=== PATIENT | female | born 1970 | race Caucasian/White ===

== ENCOUNTER 2017-03-02 14:47 | Emergency (ER) | payer BC ==
[2017-03-02 14:52] VITALS: BP 127/92; PULSE 103; TEMP 98.7; BMI 21.7
--- NOTE | 2017-03-02 15:42 | PDOC ---
"History of Present Illness - General Chief Complaint: Pain Stated Complaint: LT FOOT PAIN/wart Time Seen by Provider: 03/02/17 15:33 History Source: Patient Exam Limitations: No Limitations - History of Present Illness Initial Comments: 03/02/17 15:38 CHIEF COMPLAINT: Pain to left heel HISTORY OF PRESENT ILLNESS: Patient is a 46-year-old female with history of anemia, hypertension, reflux and anxiety. Presents [facility] department with left heel pain. Patient is under the care of podiatry for what he diagnosed was a plantar wart to the left heel. Was supposed to go on Friday however missed her appointment has calloused painful lesion to left heel. No erythema, edema, no streaking. Denies any trauma. Severity: Yes: moderate Lower Extremity Pain Location: left: heel Extremity Pain Location - Extremity Pain Location Extremity Pain Locations: left: heel Past History - Past Medical History Allergies/Adverse Reactions: Allergies Allergy/AdvReac Type Severity Reaction Status Date / Time No Known Allergies Allergy Verified 03/02/17 14:51 Home Medications: Ambulatory Orders Losartan/Hydrochlorothiazide [Hyzaar 100-25 Tablet] 1 each PO DAILY 07/05/13 Pantoprazole Sodium [Protonix] 40 mg PO DAILY #30 tablet. 11/04/14 Cholecalciferol (Vitamin D3) [Vitamin D3] 2,000 unit PO DAILY 12/04/15 Diazepam [Valium] 5 mg PO PRN PRN 12/04/15 Folic Acid 1 mg PO DAILY 12/04/15 Magnesium Oxide 400 mg PO DAILY 12/04/15 Potassium Chloride [Klor-Con M10] 20 meq PO DAILY 12/04/15 Naproxen [Naprosyn -] 500 mg PO BID #14 tablet 03/02/17 Oxycodone HCl/Acetaminophen [Percocet 5-325 mg Tablet] 1 tab PO Q4H #12 tablet MDD 6 03/02/17 Anemia: Yes Asthma: No Cancer: No Cardiac Disorders: No CVA: No COPD: No CHF: No Dementia: No Diabetes: No GI Disorders: Yes (Reflux) Disorders: No HTN: Yes Hypercholesterolemia: No Liver Disease: No Psychiatric Problems: Yes (ANXIETY.) Seizures: No Thyroid Disease: No - Surgical History Abdominal Surgery: No Appendectomy: No Cardiac Surgery: No Cholecystectomy: No Lung Surgery: No Neurologic Surgery: No Orthopedic Surgery: No - Reproductive History Tubal Ligation: Yes Uterine Fibroids: Yes - Suicide/Smoking/Psychosocial Hx Smoking History: Current every day smoker Have you smoked in the past 12 months: Yes Number of Cigarettes Smoked Daily: 10 Information on smoking cessation initiated: Yes 'Breaking Loose' booklet given: 03/02/17 Hx Alcohol Use: No Drug/Substance Use Hx: No Substance Use Type: None Hx Substance Use Treatment: No Review of Systems - Review of Systems Constitutional: No: Symptoms Reported HEENTM: No: Symptoms Reported Respiratory: No: Symptoms reported Cardiac (ROS): No: Symptoms Reported ABD/GI: No: Symptoms Reported : No: Symptoms Reported Musculoskeletal: Yes: Other (painful lesion to plantar surface of left heel) Integumentary: Yes: Other (callused lesion to left heel). No: Bruising, Erythema Neurological: No: Symptoms reported All Other Systems: Reviewed and Negative *Physical Exam - Vital Signs Last Vital Signs Temp Pulse Resp BP Pulse Ox 98.7 F 103 H 18 127/92 97 03/02/17 14:49 03/02/17 14:49 03/02/17 14:49 03/02/17 14:49 03/02/17 14:49 - Physical Exam General Appearance: Yes: Appropriately Dressed. No: Apparent Distress Neck: negative: Tender lateral, Tender midline Respiratory/Chest: positive: Lungs Clear, Normal Breath Sounds. negative: Respiratory Distress, Accessory Muscle Use Cardiovascular: positive: Regular Rhythm, Regular Rate Lymphatic: negative: Adenopathy Musculoskeletal: positive: Normal Inspection. negative: Decreased Range of Motion, Muscle Spasm, Vertebral Tenderness Extremity: positive: Normal Capillary Refill, Normal Inspection, Normal Range of Motion, Tender (left heel ). negative: Pedal Edema, Swelling, Erythema, Inflammation Integumentary: positive: Normal Color, Dry, Other (calloused lesion to the plantar surface of the left heel. ). negative: Erythema, Swelling, Ecchymosis , Bruising Neurologic: positive: Alert, Normal Mood/Affect ED Treatment Course - RADIOLOGY Radiology Studies Ordered: Category Date Time Status FOOT-LEFT [RAD] Stat Radiology 03/02/17 15:36 Ordered Medical Decision Making - Medical Decision Making 03/02/17 15:45 A/P: Patient here for evaluation of left heel pain, diagnosed with plantar warts , there is a significant callus lesion to the heel of the left foot. There is no erythema edema or evidence of cellulitis. This was seen by podiatry states that x-ray was not performed to rule out foreign body, will perform x-ray here as the callus lesion does not have typical for-wart like appearance. 03/02/17 16:33 Toradol 60 mg IM x 1 given. Xray negative for foreign body. Patient verbalized upset because day care center director was not on staff to see her in emergency department. Explained to patient that she has no clinical evidence of infection, no redness, swelling or streaking. We will discharge patient home on antiinflammatories, pain medication, strict follow up tomorrow with podiatry. Nimesh wrap placed on sparing the site of pain, to decrease pressure to area. I discussed the physical exam findings, ancillary test results and final diagnoses with the patient. I answered all of the patient's questions. The patient was satisfied with the care received and felt comfortable with the discharge plan and treatment plan. The patient will call tomorrow to arrange follow-up and will return to the Emergency Department with any new, persistent or worsening symptoms. [facility] prescription plan reviewed: The Drug Utilization Report below displays all of the controlled substance prescriptions, if any, that your patient has filled in the last twelve months. The information displayed on this report is compiled from pharmacy submissions to the Department, and accurately reflects the information as submitted by the pharmacies. This report was requested by: Haley Hoskins | Reference #: [id number] There are no results for the search terms that you entered. *DC/Admit/Observation/Transfer Diagnosis at time of Disposition: Pain of left heel - Discharge Dispostion Disposition: HOME Condition at time of disposition: Good Admit: No - Prescriptions Prescriptions: Naproxen [Naprosyn -] 500 mg PO BID #14 tablet Oxycodone HCl/Acetaminophen [Percocet 5-325 mg Tablet] 1 tab PO Q4H #12 tablet MDD 6 - Referrals Referrals: Jono Benitez MD [Staff Physician] - - Patient Instructions Printed Discharge Instructions: Heels That Hurt Additional Instructions: Ice to heal Anti-inflammatories as needed Please call tomorrow to be evaluated by podiatry ice and elevate while at rest - Post Discharge Activity Forms/Work/School Notes: Back to Work"
[2017-03-02] MEDS ORDERED: KETOROLAC TROMETHAMINE 60 MG/2 ML VIAL IM ONE (16:06)
[2017-03-02] MEDS ORDERED: KETOROLAC TROMETHAMINE 60 MG/2 ML VIAL ONE (16:06)
== END 2017-03-02 16:45 | disposition home or self-care (01) ==
LOC: JERFT 14:47
PROC: 3E0233Z Introduction of Anti-inflammatory into Muscle, Percutaneous Approach (ICD-10-PCS; principal; 2017-03-02)
DX: L84 Corns and callosities (principal); I10 Essential (primary) hypertension; K21.9 Gastro-esophageal reflux disease without esophagitis; F41.9 Anxiety disorder, unspecified; D64.9 Anemia, unspecified
CPT/HCPCS: 73630-TC-LT; 99281-25

== ENCOUNTER 2017-03-19 12:35 | Emergency (ER) | payer OTHER, BC ==
[2017-03-19 12:44] VITALS: BP 145/70; PULSE 92; TEMP 98; BMI 20.9
[2017-03-19] MEDS ORDERED: ACETAMINOPHEN 500 MG TABLET (FP) PO ONE (13:12)
[2017-03-19] MEDS ORDERED: ACETAMINOPHEN 500 MG TABLET (FP) ONE (13:13)
--- NOTE | 2017-03-19 13:53 | PDOC ---
History of Present Illness - General Chief Complaint: Head/Neck problem Stated Complaint: BACK OF HEAD/NECK PAIN Time Seen by Provider: 03/19/17 13:02 History Source: Patient Exam Limitations: No Limitations - History of Present Illness Initial Comments: 03/19/17 13:37 CHIEF COMPLAINT: Was hit in the back of the head yesterday by a basketball at work.Now with headache, pain, dizziness. HISTORY OF PRESENT ILLNESS: Patient is a 46 year old female, history of hypertension and anxiety also with chronic foot discomfort states yesterday while at work she was hit in the back of the head with a mask fall. Patient states she was standing next to a fence and felt as if she "blacked out" held herself up. Today with headache, dizziness, no visual disturbance, no nausea vomiting, no neurosensory deficits. MEDS: See medication list ALLERGIES: None REVIEW OF SYSTEMS: GENERAL/CONSTITUTIONAL: Awake alert and oriented HEAD, EYES, EARS, NOSE AND THROAT: No change in vision. No facial edema, no bruising. NO active bleeding. Nares intact. RESPIRATORY: No cough, wheezing, or hemoptysis. CARDIAC: Denies chest pain, no shortness of breathe. MUSCULOSKELETAL: No spinal point tenderness, Good ROM to all four extremeties. NO CVA tenderness. No lateral neck pain. GI/: Denies abdominal pain, no nausea or vomiting, no bloody stool, no Hematuria. SKIN : No erythema or bruising noted. No abrasion or lacerations. NEUROLOGIC: Questionable loss of consciousness, headache, dizziness PHYSICAL EXAM: GENERAL: Awake and alert and oriented x3. EYES: The pupils are equal, round, and reactive to light, with clear, conjunctiva. Good extraocular movement. No nystagmus NOSE: No nasal trauma . Midface stable MOUTH: Teeth intact. EARS: The ear canals and tympanic membranes are normal without trauma. No drainage. NECK: No Lower cervical C-spine tenderness, no pain with chin to chest. CHEST: The lungs are clear without crackles, or wheezes. No subcutaneous emphysema. No crepitus. HEART: Heart is regular rhythm, with normal S1 and S2, no murmurs. ABDOMEN: The abdomen is soft and nontender with normal bowel sounds. There is no guarding or rebound. MUSCULOSKELETAL: No spinal point tenderness. No bruising or erythema. Pelvis stable. EXTREMITIES: Extremities are normal. No visible traumatic injury. NEUROLOGICAL:Mental status: The patient is oriented x3. No Generalized headache , Romberg - Cranial nerves: Cranial nerves II through XII are intact Motor: The upper extremities are 5 over 5 in all muscle groups. The lower extremities are 5 over 5 in all muscle groups. Sensation: Sensation is intact to light touch throughout. Cerebellar: Kbntwr-xckokf-edib is normal in both upper extremities. Heel-knee- medeiros is normal in both lower extremities. Reflexes: 2+ and symmetric in the upper and lower extremities. Gait: Normal. Heel and toe walking are normal. Tandem gait is normal. SKIN: Without edema, erythema or bruising. No abrasions or lacerations. Past History - Past Medical History Allergies/Adverse Reactions: Allergies Allergy/AdvReac Type Severity Reaction Status Date / Time No Known Allergies Allergy Verified 03/19/17 12:44 Home Medications: Ambulatory Orders Losartan/Hydrochlorothiazide [Hyzaar 100-25 Tablet] 1 each PO DAILY 07/05/13 Pantoprazole Sodium [Protonix] 40 mg PO DAILY #30 tablet. 11/04/14 Cholecalciferol (Vitamin D3) [Vitamin D3] 2,000 unit PO DAILY 12/04/15 Diazepam [Valium] 5 mg PO PRN PRN 12/04/15 Folic Acid 1 mg PO DAILY 12/04/15 Magnesium Oxide 400 mg PO DAILY 12/04/15 Potassium Chloride [Klor-Con M10] 20 meq PO DAILY 12/04/15 Naproxen [Naprosyn -] 500 mg PO BID #14 tablet 03/02/17 Oxycodone HCl/Acetaminophen [Percocet 5-325 mg Tablet] 1 tab PO Q4H #12 tablet MDD 6 03/02/17 Anemia: Yes Asthma: No Cancer: No Cardiac Disorders: No CVA: No COPD: No CHF: No Dementia: No Diabetes: No GI Disorders: Yes (Reflux) Disorders: No HTN: Yes Hypercholesterolemia: No Liver Disease: No Psychiatric Problems: Yes (ANXIETY.) Seizures: No Thyroid Disease: No - Surgical History Abdominal Surgery: No Appendectomy: No Cardiac Surgery: No Cholecystectomy: No Lung Surgery: No Neurologic Surgery: No Orthopedic Surgery: No - Reproductive History Tubal Ligation: Yes Uterine Fibroids: Yes - Suicide/Smoking/Psychosocial Hx Smoking History: Current every day smoker Have you smoked in the past 12 months: Yes Number of Cigarettes Smoked Daily: 10 Information on smoking cessation initiated: No 'Breaking Loose' booklet given: 12/04/15 Hx Alcohol Use: Yes (Occasionally) Drug/Substance Use Hx: No Substance Use Type: None Hx Substance Use Treatment: No *Physical Exam - Vital Signs Last Vital Signs Temp Pulse Resp BP Pulse Ox 98 F 92 H 16 145/70 100 03/19/17 12:41 03/19/17 12:41 03/19/17 12:41 03/19/17 12:41 03/19/17 12:41 ED Treatment Course - RADIOLOGY Radiology Studies Ordered: Category Date Time Status HEAD CT WITHOUT CONTRAST [CT] Stat CT Scan 03/19/17 13:13 Taken - Medications Given in the ED: ED Medications Discontinued Medications Generic Name Dose Route Start Last Admin Trade Name Lam PRN Reason Stop Dose Admin Acetaminophen 1,000 mg 03/19/17 13:12 03/19/17 13:16 Tylenol - PO 03/19/17 13:13 1,000 mg ONCE ONE Administration Medical Decision Making - Medical Decision Making 03/19/17 14:00 A/P: Patient here for evaluation of posttraumatic headache, questionable LOC with headache which has not responded to ibuprofen. Because of nature of injury and because she works at [employer] system will perform head CT. Tylenol [address] scan with no acute pathology, patient states some relief after Tylenol to follow-up with neurology I discussed the physical exam findings, ancillary test results and final diagnoses with the patient. I answered all of the patient's questions. The patient was satisfied with the care received and felt comfortable with the discharge plan and treatment plan. The patient will call to arrange follow-up and will return to the Emergency Department with any new, persistent or worsening symptoms. *DC/Admit/Observation/Transfer Diagnosis at time of Disposition: Post-concussion headache - Discharge Dispostion Disposition: HOME Condition at time of disposition: Good Admit: No - Referrals Referrals: Phillip Giang [Primary Care Provider] - Ethan Perkins MD [Staff Physician] - - Patient Instructions Printed Discharge Instructions: Postconcussion Syndrome Additional Instructions: Please follow up with neurology for evaluation Please take tylenol for pain - Post Discharge Activity Forms/Work/School Notes: Back to Work
== END 2017-03-19 14:51 | disposition home or self-care (01) ==
LOC: JERFT 12:35
DX: G44.89 Other headache syndrome (principal); W21.05XA Struck by basketball, initial encounter; Y93.89 Activity, other specified; Y92.9 Unspecified place or not applicable; F41.9 Anxiety disorder, unspecified; I10 Essential (primary) hypertension; K21.9 Gastro-esophageal reflux disease without esophagitis; F17.210 Nicotine dependence, cigarettes, uncomplicated
CPT/HCPCS: 70450-TC; 99281-25

== ENCOUNTER 2017-05-19 01:03 | Emergency (ER) | payer BC, OTHER ==
[2017-05-19 01:56] VITALS: BP 121/79; PULSE 98; TEMP 98.3; BMI 22.6
[2017-05-19] MEDS ORDERED: KETOROLAC TROMETHAMINE 15 MG/ML VIAL IM ONE (02:39)
[2017-05-19] MEDS ORDERED: GABAPENTIN 300 MG CAPSULE (FP) PO ONE (02:39)
[2017-05-19] MEDS ORDERED: KETOROLAC TROMETHAMINE 30 MG/1 ML VIAL IM ONE (02:41)
[2017-05-19] MEDS ORDERED: KETOROLAC TROMETHAMINE 30 MG/1 ML VIAL ONE (02:44)
[2017-05-19] MEDS ORDERED: GABAPENTIN 100 MG CAPSULE (FP) ONE (02:44)
--- NOTE | 2017-05-19 02:49 | PDOC ---
History of Present Illness - General Chief Complaint: Pain Stated Complaint: GENERALIZED PAIN Time Seen by Provider: 05/19/17 02:01 History Source: Patient Exam Limitations: No Limitations - History of Present Illness Initial Comments: 05/19/17 02:42 Patient is a 46-year-old female with past medical history of anemia, hypertension, reflux, anxiety states she has been have sharp, pin like, shocking pain in arms and legs since having a concussion on 03/18/17. States she is under the treatment of Dr. Durand (neuro), and has been given gabapentin but she has no relief of symptoms. States she has been taking Motrin 400 mg every 3-4 hours without relief. Tonight her pain is 10/10, she is having difficulty walking and sleeping due to the pain so presents to the emergency room for evaluation. States she should've had a nerve testing done last week however it was canceled for unknown reasons. Denies any numbness/tingling. PMD: Dr. Giang Neuro: [place] GENERAL/CONSTITUTIONAL: [No fever or chills. No weakness. No weight change.] HEAD, EYES, EARS, NOSE AND THROAT: [No change in vision. No ear pain or discharge. No sore throat.] CARDIOVASCULAR: [No chest pain or shortness of breath.] RESPIRATORY: [No cough, wheezing, or hemoptysis.] GASTROINTESTINAL: [No nausea, vomiting, diarrhea or constipation. No rectal bleeding.] GENITOURINARY: [No dysuria, frequency, or change in urination.] MUSCULOSKELETAL: [No joint or muscle swelling or pain. No neck or back pain.] SKIN AND BREASTS: [No rash or easy bruising.] NEUROLOGIC:(+) nerve pain (-) headache, vertigo, loss of consciousness, or loss of sensation.] PSYCHIATRIC: [No depression or anxiety.] ENDOCRINE: [No increased thirst. No abnormal weight change.] HEMATOLOGIC/LYMPHATIC: [No anemia, easy bleeding, or history of blood clots.] ALLERGIC/IMMUNOLOGIC: [No hives or skin allergy. No latex allergy.] GENERAL: [The patient is awake, alert, and fully oriented, in moderate painful distress, jump each time the has pain.] HEAD: [Normal with no signs of trauma.] EYES: [Pupils equal, round and reactive to light, extraocular movements intact, sclera anicteric, conjunctiva clear.] ENT: [Ears normal, nares patent, oropharynx clear without exudates. Moist mucous membranes.] NECK: [Normal range of motion, supple without lymphadenopathy, JVD, or masses.] LUNGS: [Breath sounds equal, clear to auscultation bilaterally. No wheezes, and no crackles.] HEART: [Regular rate and rhythm, normal S1 and S2 without murmur, rub.] ABDOMEN: [Soft, nontender, normoactive bowel sounds. No guarding, no rebound. No masses.] EXTREMITIES: [Normal range of motion, no edema. No clubbing or cyanosis. No cords, erythema, or tenderness.] NEUROLOGICAL: [Cranial nerves II through XII grossly intact. Normal speech, normal gait.] PSYCH: [Normal mood, normal affect.] SKIN: [Warm, Dry, normal turgor, no rashes or lesions noted.] 05/19/17 02:51 Past History - Past Medical History Allergies/Adverse Reactions: Allergies Allergy/AdvReac Type Severity Reaction Status Date / Time No Known Allergies Allergy Verified 05/19/17 01:30 Home Medications: Ambulatory Orders Losartan/Hydrochlorothiazide [Hyzaar 100-25 Tablet] 1 each PO DAILY 07/05/13 Pantoprazole Sodium [Protonix] 40 mg PO DAILY #30 tablet. 11/04/14 Cholecalciferol (Vitamin D3) [Vitamin D3] 2,000 unit PO DAILY 12/04/15 Diazepam [Valium] 5 mg PO PRN PRN 12/04/15 Folic Acid 1 mg PO DAILY 12/04/15 Magnesium Oxide 400 mg PO DAILY 12/04/15 Potassium Chloride [Klor-Con M10] 20 meq PO DAILY 12/04/15 Naproxen [Naprosyn -] 500 mg PO BID #14 tablet 03/02/17 Oxycodone HCl/Acetaminophen [Percocet 5-325 mg Tablet] 1 tab PO Q4H #12 tablet MDD 6 03/02/17 Oxycodone HCl/Acetaminophen [Percocet 5/325 -] 1 tab PO Q4H #12 tablet MDD 6 04/25 Anemia: Yes Asthma: No Cancer: No Cardiac Disorders: No CVA: No COPD: No CHF: No Dementia: No Diabetes: No GI Disorders: Yes (Reflux) Disorders: No HTN: Yes Hypercholesterolemia: No Liver Disease: No Psychiatric Problems: Yes (ANXIETY.) Seizures: No Thyroid Disease: No - Surgical History Abdominal Surgery: No Appendectomy: No Cardiac Surgery: No Cholecystectomy: No Lung Surgery: No Neurologic Surgery: No Orthopedic Surgery: No - Reproductive History Tubal Ligation: Yes Uterine Fibroids: Yes - Suicide/Smoking/Psychosocial Hx Smoking History: Current every day smoker Have you smoked in the past 12 months: Yes Number of Cigarettes Smoked Daily: 10 Information on smoking cessation initiated: No 'Breaking Loose' booklet given: 12/04/15 Hx Alcohol Use: No Drug/Substance Use Hx: No Substance Use Type: None Hx Substance Use Treatment: No *Physical Exam - Vital Signs Last Vital Signs Temp Pulse Resp BP Pulse Ox 98.3 F 98 H 20 121/79 98 05/19/17 01:30 05/19/17 01:30 05/19/17 01:30 05/19/17 01:30 05/19/17 01:30 Medical Decision Making - Medical Decision Making 05/19/17 02:51 Patient is a 46-year-old female with past medical history of anemia, hypertension, reflux, anxiety states she has been have sharp, pin like, shocking pain in arms and legs since having a concussion on 03/18/17 consistent peripheral neuropathy. Will give Percocet on gabapentin 300 mg by mouth, Toradol 30 mg IM. Reassess on discharge. Patient is improved I discussed the physical exam findings, ancillary test results and final diagnoses with the patient. I answered all of the patient's questions. The patient was satisfied with the care received and felt comfortable with the discharge plan and treatment plan. The Patient agrees to follow up with the primary care physician within 24-72 hours. *DC/Admit/Observation/Transfer Diagnosis at time of Disposition: Peripheral neuropathy Qualifiers: Peripheral neuropathy type: polyneuropathy, unspecified Qualified Code(s): G62.9 - Polyneuropathy, unspecified - Discharge Dispostion Disposition: HOME Condition at time of disposition: Stable - Prescriptions Prescriptions: Oxycodone HCl/Acetaminophen [Percocet 5/325 -] 1 tab PO Q4H #12 tablet MDD 6 - Referrals Referrals: Phillip Giang [Primary Care Provider] - - Patient Instructions Printed Discharge Instructions: Peripheral Neuropathy Additional Instructions: Your Discharge Instructions: You must call primary care physician within 24 hours to arrange follow-up. Return to the Emergency Department with any new, persistent or worsening symptoms, for fever, chills, SOB, dizziness or any other concerning changes that may occur. He was follow-up with neurology for possible pain management. - Post Discharge Activity
== END 2017-05-19 05:16 | disposition home or self-care (01) ==
LOC: JER 01:03
PROC: 3E0233Z Introduction of Anti-inflammatory into Muscle, Percutaneous Approach (ICD-10-PCS; principal; 2017-05-19)
DX: G62.9 Polyneuropathy, unspecified (principal); D64.9 Anemia, unspecified; I10 Essential (primary) hypertension; K21.9 Gastro-esophageal reflux disease without esophagitis; F41.9 Anxiety disorder, unspecified
CPT/HCPCS: 99281-25

== ENCOUNTER 2021-04-03 12:57 | Emergency (ER) | payer BC ==
[2021-04-03 13:09] VITALS: BP 167/96; PULSE 74; TEMP 98.6; BMI 18.3
[2021-04-03] MEDS ORDERED: POLYETHYLENE GLYCOL 3350 119 GM BTL PO ONE (13:30)
[2021-04-03] MEDS ORDERED: LACTULOSE 20 GM/30 ML UDC (FOR ORAL USE ONLY) PO ONE (13:30)
[2021-04-03] MEDS ORDERED: LACTULOSE 20 GM/30 ML UDC (FOR ORAL USE ONLY) ONE (13:38)
[2021-04-03] MEDS ORDERED: POLYETHYLENE GLYCOL (HEALTHYLAX) 3350 17 GM PACKET ONE (13:40)
[2021-04-03] MEDS ORDERED: MAG HYDROX/AL HYDROX/SIMETH 30 ML UNIT-DOSE CUP PO ONE (14:31)
[2021-04-03] MEDS ORDERED: MAG HYDROX/AL HYDROX/SIMETH 30 ML UNIT-DOSE CUP ONE (14:41)
[2021-04-03] MEDS ORDERED: SODIUM PHOSPHATE/NA BIPHOS 133 ML ENEMA PR ONE (14:58)
[2021-04-03 15:39] LABS: PH,URINE 8.5 (5.0-8.0); URINE APPEARANCE CLEAR; URINE BILIRUBIN NEGATIVE (NEGATIVE); URINE COLOR YELLOW; URINE GLUCOSE (UA) NEGATIVE (NEGATIVE); URINE KETONE NEGATIVE (NEGATIVE); URINE LEUK ESTERASE NEGATIVE (NEGATIVE); URINE NITRITE NEGATIVE (NEGATIVE); URINE PROTEIN NEGATIVE (NEGATIVE); URINE UROBILINOGEN 0.2 mg/dL (0.2-1.0)
[2021-04-03] MEDS ORDERED: KETOROLAC TROMETHAMINE 30 MG/1 ML VIAL IM ONE (15:40)
[2021-04-03] MEDS ORDERED: KETOROLAC TROMETHAMINE 30 MG/1 ML VIAL ONE (15:41)
== END 2021-04-03 16:55 | disposition home or self-care (01) ==
LOC: JER 12:57
PROC: 3E0233Z Introduction of Anti-inflammatory into Muscle, Percutaneous Approach (ICD-10-PCS; principal; 2021-04-03)
DX: K59.00 Constipation, unspecified (principal)
CPT/HCPCS: 74019-TC-FY; 81003; 87086; 99284-25

== ENCOUNTER 2021-12-01 10:36 | Inpatient (IN) | payer BC ==
[2021-12-01] MEDS ORDERED: SODIUM CHLORIDE 1,000 ML IV STA ×2 (11:30→13:17)
[2021-12-01] MEDS ORDERED: MAG HYDROX/AL HYDROX/SIMETH 30 ML UNIT-DOSE CUP PO ONE (11:49)
[2021-12-01] MEDS ORDERED: POLYETHYLENE GLYCOL 3350 119 GM BTL PO ONE (11:49)
[2021-12-01] MEDS ORDERED: LACTULOSE 20 GM/30 ML UDC (FOR ORAL USE ONLY) PO ONE (11:49)
[2021-12-01] MEDS ORDERED: MAG HYDROX/AL HYDROX/SIMETH 30 ML UNIT-DOSE CUP ONE (11:51)
[2021-12-01] MEDS ORDERED: POLYETHYLENE GLYCOL (HEALTHYLAX) 3350 17 GM PACKET ONE (12:01)
[2021-12-01] MEDS ORDERED: LACTULOSE 20 GM/30 ML UDC (FOR ORAL USE ONLY) ONE (12:02)
[2021-12-01 12:13] LABS: BASO % 0.2 % (0-2.0); HEMATOCRIT 39.8 % (32.4-45.2); HEMOGLOBIN 13.4 GM/dL (10.7-15.3); LYMPH % 6.1 % (8-40); MCHC 33.5 g/dl (32.0-36.0); MEAN CELL VOLUME 101.4 fl (80-96); MEAN PLT VOLUME 9.8 fl (7.5-11.1); MONO % 7.1 % (3.8-10.2); NEUT % 86.6 % (42.8-82.8); PLATELET COUNT 135 10^3/uL (134-434); RBC 3.93 M/mm3 (3.60-5.2); RDW 16.2 % (11.6-15.6)
[2021-12-01 12:26] LABS: CHLORIDE 97 mmol/L (98-107); SODIUM 135 mmol/L (136-145)
[2021-12-01 12:28] LABS: CALCIUM 9.5 mg/dL (8.5-10.1)
[2021-12-01 12:29] LABS: ALBUMIN 4.3 g/dl (3.4-5.0); ANION GAP 8 MMOL/L (8-16); BLOOD UREA NITROGEN 24.4 mg/dL (7-18); CO2 31 mmol/L (21-32); GLUCOSE,RANDOM 155 mg/dL (74-106)
[2021-12-01 12:31] LABS: SGPT/ALT 48 U/L (13-61)
[2021-12-01 12:32] LABS: CREATININE 0.9 mg/dL (0.55-1.3); SGOT/AST 111 U/L (15-37)
[2021-12-01] MEDS ORDERED: SODIUM PHOSPHATE/NA BIPHOS 133 ML ENEMA PR ONE (12:32)
[2021-12-01 12:34] LABS: ALK PHOS 113 U/L (45-117); BILIRUBIN,TOTAL 0.8 mg/dL (0.2-1); TOT PROT 8.2 g/dl (6.4-8.2)
[2021-12-01] MEDS ORDERED: ACETAMINOPHEN 1000 MG/100 ML BAG IVPB ONE (13:29)
[2021-12-01 14:09] LABS: EPI CELLS 24 /uL (0-25.1); HCG,QUALITATIVE URINE Negative; HYALINE CASTS 2 /uL (0-3.1); PH,URINE 6.5 (5.0-8.0); URINE APPEARANCE CLEAR; URINE BACTERIA 44 /uL (0-1359); URINE BILIRUBIN NEGATIVE (NEGATIVE); URINE COLOR YELLOW; URINE GLUCOSE (UA) NEGATIVE (NEGATIVE); URINE KETONE TRACE (NEGATIVE); URINE LEUK ESTERASE NEGATIVE (NEGATIVE); URINE NITRITE NEGATIVE (NEGATIVE); URINE PROTEIN 2+ (NEGATIVE); URINE RBC 9 /uL (0-23.9); URINE UROBILINOGEN 0.2 mg/dL (0.2-1.0); URINE WBC 4 /uL (0-25.8)
[2021-12-01] MEDS ORDERED: ACETAMINOPHEN INJECTION 100 ML IVPB ONE (14:34)
[2021-12-01] MEDS ORDERED: SODIUM CHLORIDE 1,000 ML IV SCH (16:30)
[2021-12-01] MEDS ORDERED: NICOTINE 21 MG/24 HOURS TOPICAL PATCH ONE (21:47)
[2021-12-01] MEDS: NICOTINE 21 MG/24 HOURS TOPICAL PATCH TD SCH (23:18)
[2021-12-01] MEDS: LORazepam 2 MG/ML SDV VIAL IVPUSH PRN (23:18)
[2021-12-02] MEDS: LORazepam 2 MG/ML SDV VIAL IVPUSH PRN ×4 (05:19→23:40)
[2021-12-02 07:38] LABS: BASO % 0.2 % (0-2.0); EOS % 0.2 % (0-4.5); HEMOGLOBIN 12.2 GM/dL (10.7-15.3); LYMPH % 8.6 % (8-40); MCH 34.6 pg (25.7-33.7); MCHC 33.8 g/dl (32.0-36.0); MEAN CELL VOLUME 102.3 fl (80-96); MONO % 6.7 % (3.8-10.2); NEUT % 84.3 % (42.8-82.8); PLATELET COUNT 94 10^3/uL (134-434); RBC 3.52 M/mm3 (3.60-5.2); RDW 16.3 % (11.6-15.6)
[2021-12-02] MEDS ORDERED: LACTATED RINGERS SOLUTION 1,000 ML/1,000 ML INFUS.BAG IV SCH (08:00)
[2021-12-02 08:02] LABS: CALCIUM 8.5 mg/dL (8.5-10.1)
[2021-12-02 08:03] LABS: ALBUMIN 3.8 g/dl (3.4-5.0); CREATININE 0.5 mg/dL (0.55-1.3)
[2021-12-02 08:05] LABS: TOT PROT 7.3 g/dl (6.4-8.2)
[2021-12-02 08:07] LABS: BLOOD UREA NITROGEN 11.9 mg/dL (7-18)
[2021-12-02 08:12] LABS: BILIRUBIN,TOTAL 0.9 mg/dL (0.2-1)
[2021-12-02] MEDS ORDERED: KCL 10 MEQ IVPB 10 MEQ/100 ML INFUS.BAG IVPB SCH (08:15)
[2021-12-02] MEDS ORDERED: THIAMINE HCL 200 MG/2 ML VIAL IVPB ONE ×2 (08:38)
[2021-12-02 08:44] LABS: MAGNESIUM 1.2 mg/dL (1.8-2.4)
[2021-12-02] MEDS ORDERED: DEXTROSE 5%-LACTATED RINGERS 980 ML with POTASSIUM CHLORIDE 40 MEQ IV SCH (08:45)
[2021-12-02 08:48] LABS: PHOSPHOROUS 2.2 mg/dL (2.5-4.9)
[2021-12-02] MEDS ORDERED: THIAMINE HCL 200 MG/2 ML VIAL ONE (09:17)
[2021-12-02] MEDS ORDERED: PANTOPRAZOLE SODIUM 40 MG VIAL ONE (09:17)
[2021-12-02] MEDS ORDERED: NICOTINE 21 MG/24 HOURS TOPICAL PATCH ONE (09:17)
[2021-12-02] MEDS ORDERED: metoPROLOL SUCCINATE 25 MG TAB.SR.24H (FP) PO ONE (09:17)
[2021-12-02] MEDS: PANTOPRAZOLE SODIUM 40 MG VIAL IVPUSH SCH (09:27)
[2021-12-02] MEDS: NICOTINE 21 MG/24 HOURS TOPICAL PATCH TD SCH (09:27)
[2021-12-02] MEDS: FOLIC ACID 1 MG TABLET (FP) PO SCH (09:29)
[2021-12-02] MEDS: metoPROLOL SUCCINATE 25 MG TAB.SR.24H (FP) PO SCH (09:31)
[2021-12-02] MEDS ORDERED: ACETAMINOPHEN INJECTION 100 ML IVPB ONE ×2 (09:32→15:51)
[2021-12-02] MEDS ORDERED: ENOXAPARIN NA (PORCINE) 40 MG/0.4 ML DISP.SYRIN SQ ONE (09:32)
[2021-12-02] MEDS: ENOXAPARIN NA (PORCINE) 40 MG/0.4 ML DISP.SYRIN SQ SCH (09:37)
[2021-12-02] MEDS: ACETAMINOPHEN 1000 MG/100 ML BAG IVPB PRN ×2 (09:37→15:55)
[2021-12-02] MEDS: POTASSIUM CHLORIDE 40 MEQ in DEXTROSE 5%-LACTATED RINGERS 1,000 ML IV SCH ×2 (10:46→18:46)
[2021-12-02] MEDS ORDERED: MAGNESIUM 2GM/50ML STERILE WATER IVPB IVPB ONE (15:19)
[2021-12-02] MEDS ORDERED: POTASSIUM PHOSPHATE 30 MM in SODIUM CHLORIDE 500 ML IVPB ONE (15:19)
[2021-12-03] MEDS ORDERED: HALOPERIDOL LACTATE 5 MG/ML ONE (01:15)
[2021-12-03] MEDS ORDERED: HALOPERIDOL LACTATE 5 MG/ML IM ONE (01:20)
[2021-12-03 02:53] VITALS: BMI 16.0
[2021-12-03] MEDS ORDERED: LORazepam 1 MG TABLET PO PRN (08:05)
[2021-12-03 08:22] LABS: BLOOD UREA NITROGEN 7.2 mg/dL (7-18); CALCIUM 8.3 mg/dL (8.5-10.1); MAGNESIUM 1.5 mg/dL (1.8-2.4)
[2021-12-03 08:24] LABS: BILIRUBIN,DIRECT 0.3 mg/dL (0.0-0.2); PHOSPHOROUS 2.1 mg/dL (2.5-4.9)
[2021-12-03 08:25] LABS: BILIRUBIN,TOTAL 0.8 mg/dL (0.2-1); BILIRUBIN,TOTAL 0.9 mg/dL (0.2-1); CREATININE 0.4 mg/dL (0.55-1.3)
[2021-12-03] MEDS: FOLIC ACID 1 MG TABLET (FP) PO SCH (09:47)
[2021-12-03] MEDS: metoPROLOL SUCCINATE 25 MG TAB.SR.24H (FP) PO SCH (09:47)
[2021-12-03] MEDS: THIAMINE HCL 200 MG/2 ML VIAL IVPB SCH (09:54)
[2021-12-03] MEDS: PANTOPRAZOLE SODIUM 40 MG VIAL IVPUSH SCH (09:56)
[2021-12-03] MEDS: ENOXAPARIN NA (PORCINE) 40 MG/0.4 ML DISP.SYRIN SQ SCH (09:56)
[2021-12-03] MEDS: NICOTINE 21 MG/24 HOURS TOPICAL PATCH TD SCH (09:57)
[2021-12-03] MEDS: LORazepam 1 MG TABLET PO SCH ×3 (11:17→23:04)
[2021-12-03] MEDS: KETOROLAC TROMETHAMINE 15 MG/ML VIAL IVPUSH PRN ×2 (17:12→23:03)
[2021-12-03] MEDS: ALLOPURINOL 100 MG TABLET (FP) PO SCH (21:12)
[2021-12-03] MEDS: ROSUVASTATIN CA 5 MG TABLET PO SCH (21:12)
[2021-12-03] MEDS ORDERED: PATIENT'S OWN MEDICATION (NON-FORMULARY) (Meloxicam [Meloxicam] 15 MG Tablet) PO SCH (22:00)
[2021-12-04] MEDS: LORazepam 1 MG TABLET PO SCH ×4 (05:50→23:13)
[2021-12-04] MEDS: FOLIC ACID 1 MG TABLET (FP) PO SCH (09:58)
[2021-12-04] MEDS: ALLOPURINOL 100 MG TABLET (FP) PO SCH ×2 (09:59→21:36)
[2021-12-04] MEDS: THIAMINE HCL 200 MG/2 ML VIAL IVPB SCH (09:59)
[2021-12-04] MEDS: metoPROLOL SUCCINATE 25 MG TAB.SR.24H (FP) PO SCH (09:59)
[2021-12-04] MEDS: POLYETHYLENE GLYCOL (HEALTHYLAX) 3350 17 GM PACKET PO SCH (09:59)
[2021-12-04] MEDS: PANTOPRAZOLE SODIUM 40 MG VIAL IVPUSH SCH (10:01)
[2021-12-04] MEDS: NICOTINE 21 MG/24 HOURS TOPICAL PATCH TD SCH (10:02)
[2021-12-04 10:14] LABS: BASO % 0.2 % (0-2.0); EOS % 0.8 % (0-4.5); HEMATOCRIT 32.9 % (32.4-45.2); HEMOGLOBIN 11.2 GM/dL (10.7-15.3); LYMPH % 12.7 % (8-40); MCH 34.3 pg (25.7-33.7); MCHC 34.1 g/dl (32.0-36.0); MEAN CELL VOLUME 100.8 fl (80-96); MEAN PLT VOLUME 9.2 fl (7.5-11.1); MONO % 10.9 % (3.8-10.2); NEUT % 75.4 % (42.8-82.8); PLATELET COUNT 85 10^3/uL (134-434); RBC 3.27 M/mm3 (3.60-5.2); RDW 16.1 % (11.6-15.6); WHITE BLOOD COUNT 6.2 K/mm3 (4.0-10.0)
[2021-12-04 10:27] LABS: CALCIUM 8.5 mg/dL (8.5-10.1)
[2021-12-04 10:28] LABS: BLOOD UREA NITROGEN 10.2 mg/dL (7-18)
[2021-12-04 10:31] LABS: CREATININE 0.6 mg/dL (0.55-1.3)
[2021-12-04] MEDS: KETOROLAC TROMETHAMINE 15 MG/ML VIAL IVPUSH PRN ×3 (11:03→23:13)
[2021-12-04] MEDS ORDERED: MAGNESIUM SULF 50% (8.12 MEQ/2 ML-1 GM VIAL) IVPB ONE (16:35)
[2021-12-04] MEDS ORDERED: SODIUM PHOSPHATE - 30 MM in SODIUM CHLORIDE 500 ML IVPB ONE (16:35)
[2021-12-05] MEDS: LORazepam 1 MG TABLET PO SCH ×4 (04:48→23:19)
[2021-12-05 10:19] LABS: BASO % 0.5 % (0-2.0); EOS % 1.9 % (0-4.5); HEMATOCRIT 33.3 % (32.4-45.2); HEMOGLOBIN 11.3 GM/dL (10.7-15.3); LYMPH % 14.2 % (8-40); MCH 34.5 pg (25.7-33.7); MCHC 33.9 g/dl (32.0-36.0); MEAN CELL VOLUME 101.7 fl (80-96); MEAN PLT VOLUME 9.5 fl (7.5-11.1); MONO % 10.5 % (3.8-10.2); NEUT % 72.9 % (42.8-82.8); PLATELET COUNT 117 10^3/uL (134-434); RBC 3.27 M/mm3 (3.60-5.2); WHITE BLOOD COUNT 5.9 K/mm3 (4.0-10.0)
[2021-12-05] MEDS: ENOXAPARIN NA (PORCINE) 40 MG/0.4 ML DISP.SYRIN SQ SCH (10:20)
[2021-12-05] MEDS: NICOTINE 21 MG/24 HOURS TOPICAL PATCH TD SCH (10:20)
[2021-12-05] MEDS: ALLOPURINOL 100 MG TABLET (FP) PO SCH ×2 (10:20→23:17)
[2021-12-05] MEDS: POLYETHYLENE GLYCOL (HEALTHYLAX) 3350 17 GM PACKET PO SCH (10:20)
[2021-12-05] MEDS: FOLIC ACID 1 MG TABLET (FP) PO SCH (10:20)
[2021-12-05] MEDS: metoPROLOL SUCCINATE 25 MG TAB.SR.24H (FP) PO SCH (10:21)
[2021-12-05] MEDS: KETOROLAC TROMETHAMINE 15 MG/ML VIAL IVPUSH PRN ×2 (10:21→18:44)
[2021-12-05] MEDS: THIAMINE HCL 200 MG/2 ML VIAL IVPB SCH (10:26)
[2021-12-05] MEDS: PANTOPRAZOLE SODIUM 40 MG VIAL IVPUSH SCH (10:31)
[2021-12-05] MEDS ORDERED: POTASSIUM CHLORIDE TABS 20 MEQ TABLET.ER (FP) PO ONE ×2 (10:40→22:00)
[2021-12-05 10:54] LABS: BILIRUBIN,TOTAL 0.9 mg/dL (0.2-1)
[2021-12-05 10:55] LABS: TOT PROT 6.2 g/dl (6.4-8.2)
[2021-12-05 10:56] LABS: BLOOD UREA NITROGEN 7.4 mg/dL (7-18); CREATININE 0.5 mg/dL (0.55-1.3)
[2021-12-05 10:57] LABS: MAGNESIUM 1.6 mg/dL (1.8-2.4)
[2021-12-05 10:59] LABS: PHOSPHOROUS 5.1 mg/dL (2.5-4.9)
[2021-12-05] MEDS ORDERED: MAGNESIUM SULF 50% (8.12 MEQ/2 ML-1 GM VIAL) IVPB ONE (11:02)
[2021-12-05] MEDS: LISINOPRIL 10 MG TABLET PO SCH (11:45)
[2021-12-05] MEDS: ROSUVASTATIN CA 5 MG TABLET PO SCH (23:18)
[2021-12-05] MEDS: THIAMINE HCL 100 MG TABLET (FP) PO SCH (23:18)
[2021-12-06] MEDS ORDERED: LORazepam 0.5 MG TABLET PO PRN
[2021-12-06] MEDS: KETOROLAC TROMETHAMINE 15 MG/ML VIAL IVPUSH PRN ×3 (01:06→18:07)
[2021-12-06] MEDS: LORazepam 0.5 MG TABLET PO SCH ×4 (05:09→22:12)
[2021-12-06 08:29] LABS: BASO % 0.7 % (0-2.0); EOS % 3.5 % (0-4.5); HEMATOCRIT 31.7 % (32.4-45.2); HEMOGLOBIN 10.7 GM/dL (10.7-15.3); LYMPH % 15.9 % (8-40); MCH 34.2 pg (25.7-33.7); MCHC 33.8 g/dl (32.0-36.0); MEAN CELL VOLUME 101.3 fl (80-96); MEAN PLT VOLUME 10.6 fl (7.5-11.1); MONO % 13.1 % (3.8-10.2); NEUT % 66.8 % (42.8-82.8); PLATELET COUNT 154 10^3/uL (134-434); RBC 3.13 M/mm3 (3.60-5.2); RDW 15.6 % (11.6-15.6); WHITE BLOOD COUNT 6.3 K/mm3 (4.0-10.0)
[2021-12-06 08:51] LABS: ALBUMIN 3.1 g/dl (3.4-5.0); BLOOD UREA NITROGEN 6.1 mg/dL (7-18); CALCIUM 9.7 mg/dL (8.5-10.1)
[2021-12-06 08:54] LABS: CREATININE 0.6 mg/dL (0.55-1.3)
[2021-12-06 08:56] LABS: BILIRUBIN,TOTAL 0.6 mg/dL (0.2-1); TOT PROT 6.6 g/dl (6.4-8.2)
[2021-12-06] MEDS: PANTOPRAZOLE SODIUM 40 MG VIAL IVPUSH SCH (09:49)
[2021-12-06] MEDS: LISINOPRIL 10 MG TABLET PO SCH (09:50)
[2021-12-06] MEDS: POLYETHYLENE GLYCOL (HEALTHYLAX) 3350 17 GM PACKET PO SCH (09:50)
[2021-12-06] MEDS: ENOXAPARIN NA (PORCINE) 40 MG/0.4 ML DISP.SYRIN SQ SCH (09:50)
[2021-12-06] MEDS: ALLOPURINOL 100 MG TABLET (FP) PO SCH ×2 (09:50→22:11)
[2021-12-06] MEDS: metoPROLOL SUCCINATE 25 MG TAB.SR.24H (FP) PO SCH (09:50)
[2021-12-06] MEDS: FOLIC ACID 1 MG TABLET (FP) PO SCH (09:50)
[2021-12-06] MEDS: NICOTINE 21 MG/24 HOURS TOPICAL PATCH TD SCH (09:50)
[2021-12-06] MEDS ORDERED: ACETAMINOPHEN 1000 MG/100 ML BAG IVPB ONE (20:23)
[2021-12-06] MEDS: SIMETHICONE 80 MG TAB.CHEW (FP) PO PRN (20:53)
[2021-12-06] MEDS: THIAMINE HCL 100 MG TABLET (FP) PO SCH (22:11)
[2021-12-07] MEDS: KETOROLAC TROMETHAMINE 15 MG/ML VIAL IVPUSH PRN ×2 (00:14→07:15)
[2021-12-07] MEDS ORDERED: LORazepam 0.5 MG TABLET PO ONE (05:00)
[2021-12-07] MEDS: SIMETHICONE 80 MG TAB.CHEW (FP) PO PRN ×3 (07:15→21:19)
[2021-12-07 08:35] LABS: BASO % 0.7 % (0-2.0); EOS % 3.7 % (0-4.5); HEMATOCRIT 31.4 % (32.4-45.2); HEMOGLOBIN 10.4 GM/dL (10.7-15.3); LYMPH % 17.7 % (8-40); MCHC 33.3 g/dl (32.0-36.0); MEAN CELL VOLUME 102.1 fl (80-96); MEAN PLT VOLUME 10.2 fl (7.5-11.1); MONO % 13.9 % (3.8-10.2); PLATELET COUNT 178 10^3/uL (134-434); RBC 3.07 M/mm3 (3.60-5.2); RDW 15.5 % (11.6-15.6); WHITE BLOOD COUNT 6.4 K/mm3 (4.0-10.0)
[2021-12-07 08:47] LABS: CALCIUM 9.5 mg/dL (8.5-10.1)
[2021-12-07 08:51] LABS: CREATININE 0.6 mg/dL (0.55-1.3)
[2021-12-07] MEDS: LISINOPRIL 10 MG TABLET PO SCH (09:31)
[2021-12-07] MEDS: metoPROLOL SUCCINATE 25 MG TAB.SR.24H (FP) PO SCH (09:31)
[2021-12-07] MEDS: NICOTINE 21 MG/24 HOURS TOPICAL PATCH TD SCH (09:31)
[2021-12-07] MEDS: ENOXAPARIN NA (PORCINE) 40 MG/0.4 ML DISP.SYRIN SQ SCH (09:32)
[2021-12-07] MEDS: ALLOPURINOL 100 MG TABLET (FP) PO SCH ×2 (09:32→21:18)
[2021-12-07] MEDS: POLYETHYLENE GLYCOL (HEALTHYLAX) 3350 17 GM PACKET PO SCH (09:32)
[2021-12-07] MEDS: PANTOPRAZOLE SODIUM 40 MG VIAL IVPUSH SCH (09:33)
[2021-12-07] MEDS ORDERED: SODIUM CHLORIDE 1 GM TABLET PO ONE ×2 (10:46→14:00)
[2021-12-07] MEDS ORDERED: GLYCERIN 1 RECTAL SUPPOSITORY, ADULT PR ONE (10:53)
[2021-12-07] MEDS: PANTOPRAZOLE 40 MG TABLET PO SCH (10:57)
[2021-12-07] MEDS ORDERED: ACETAMINOPHEN 1000 MG/100 ML BAG IVPB ONE (12:24)
[2021-12-07 15:08] LABS: CALCIUM 9.3 mg/dL (8.5-10.1)
[2021-12-07 15:09] LABS: BLOOD UREA NITROGEN 14.1 mg/dL (7-18)
[2021-12-07 15:13] LABS: CREATININE 0.7 mg/dL (0.55-1.3)
[2021-12-07] MEDS ORDERED: MELATONIN 5 MG TABLETS PO ONE (20:33)
[2021-12-07] MEDS: THIAMINE HCL 100 MG TABLET (FP) PO SCH (21:18)
[2021-12-07] MEDS: ROSUVASTATIN CA 5 MG TABLET PO SCH (21:19)
[2021-12-07] MEDS: SODIUM CHLORIDE 1 GM TABLET PO SCH (21:19)
[2021-12-07] MEDS ORDERED: ACETAMINOPHEN 325 MG TABLET (FP) PO ONE (22:48)
[2021-12-08] MEDS: POLYETHYLENE GLYCOL (HEALTHYLAX) 3350 17 GM PACKET PO SCH (09:34)
[2021-12-08] MEDS: metoPROLOL SUCCINATE 25 MG TAB.SR.24H (FP) PO SCH (09:35)
[2021-12-08] MEDS: LISINOPRIL 10 MG TABLET PO SCH (09:35)
[2021-12-08] MEDS: PANTOPRAZOLE 40 MG TABLET PO SCH (09:35)
[2021-12-08] MEDS: SODIUM CHLORIDE 1 GM TABLET PO SCH (09:35)
[2021-12-08] MEDS: NICOTINE 21 MG/24 HOURS TOPICAL PATCH TD SCH (09:36)
[2021-12-08] MEDS: ALLOPURINOL 100 MG TABLET (FP) PO SCH (09:36)
[2021-12-08] MEDS: ENOXAPARIN NA (PORCINE) 40 MG/0.4 ML DISP.SYRIN SQ SCH (09:36)
[2021-12-08 09:45] LABS: BASO % 0.8 % (0-2.0); EOS % 3.3 % (0-4.5); HEMATOCRIT 30.3 % (32.4-45.2); HEMOGLOBIN 10.1 GM/dL (10.7-15.3); LYMPH % 13.5 % (8-40); MCH 34.1 pg (25.7-33.7); MCHC 33.4 g/dl (32.0-36.0); MEAN CELL VOLUME 102.1 fl (80-96); MEAN PLT VOLUME 9.9 fl (7.5-11.1); MONO % 12.2 % (3.8-10.2); NEUT % 70.2 % (42.8-82.8); PLATELET COUNT 224 10^3/uL (134-434); RBC 2.96 M/mm3 (3.60-5.2); RDW 15.6 % (11.6-15.6); WHITE BLOOD COUNT 6.9 K/mm3 (4.0-10.0)
[2021-12-08] MEDS ORDERED: BACITRACIN 15 GM TUBE TOPICAL OINTMENT TP SCH (10:00)
[2021-12-08 10:17] LABS: BILIRUBIN,TOTAL 0.5 mg/dL (0.2-1)
[2021-12-08 10:20] LABS: ALBUMIN 3.1 g/dl (3.4-5.0); BLOOD UREA NITROGEN 12.7 mg/dL (7-18); CALCIUM 9.6 mg/dL (8.5-10.1); MAGNESIUM 1.3 mg/dL (1.8-2.4)
[2021-12-08 10:23] LABS: CREATININE 0.7 mg/dL (0.55-1.3); PHOSPHOROUS 4.5 mg/dL (2.5-4.9)
[2021-12-08 10:25] LABS: TOT PROT 6.4 g/dl (6.4-8.2)
[2021-12-08] MEDS: MAGNESIUM 2GM/50ML STERILE WATER IVPB IVPB SCH ×2 (13:41→14:54)
[2021-12-08 14:29] VITALS: BP 136/82; PULSE 74; TEMP 98.4
== END 2021-12-08 16:45 | disposition home or self-care (01) | DRG 439 ==
LOC: JER 10:36 → JERBED 15:26 → J8W 12-03 02:18
PROVIDERS: ADMIT Internal Medicine; ATTEND Internal Medicine
DX: K85.20 Alcohol induced acute pancreatitis without necrosis or infection (principal); N17.9 Acute kidney failure, unspecified; E87.1 Hypo-osmolality and hyponatremia; I10 Essential (primary) hypertension; E78.5 Hyperlipidemia, unspecified; M10.9 Gout, unspecified; K59.09 Other constipation; F17.210 Nicotine dependence, cigarettes, uncomplicated; F10.20 Alcohol dependence, uncomplicated; E87.6 Hypokalemia; E83.42 Hypomagnesemia; E83.39 Other disorders of phosphorus metabolism; D64.9 Anemia, unspecified; R42 Dizziness and giddiness; E86.0 Dehydration
CPT/HCPCS: 36415; 74019-TC-FY; 74177-TC; 74181-TC; 76705-TC; 80048; 80053; 80061; 80076; 80307; 81003; 82607; 82746; 83690; 83735; 84100; 84443; 84703; 85025; 87086; 93005; 93010; 99285-25; C9803-CS; Q9967; U0003; U0005

== ENCOUNTER 2022-04-29 08:02 | Day surgery (SDC) | payer BC ==
[2022-04-26 10:55] VITALS: BMI 19.1
[2022-04-29] MEDS ORDERED: LIDOCAINE HCL/PF 2% SDV 5ML VIAL ONE (08:07)
[2022-04-29] MEDS ORDERED: PROPOFOL 120 ML ONE (08:08)
[2022-04-29 08:27] VITALS: TEMP 97.8
[2022-04-29] MEDS ORDERED: GLUCAGON 1 MG KIT ONE (10:00)
[2022-04-29 10:24] VITALS: RESP 18
[2022-04-29 10:52] VITALS: BP 113/70; PULSE 56
== END 2022-04-29 10:45 | disposition home or self-care (01) ==
LOC: FASU-ENDO 08:02
PROVIDERS: ATTEND Internal Medicine Gastroenterology
PROC: 0DB98ZX Excision of Duodenum, Via Natural or Artificial Opening Endoscopic, Diagnostic (ICD-10-PCS; 2022-04-29)
PROC: 0DB68ZX Excision of Stomach, Via Natural or Artificial Opening Endoscopic, Diagnostic (ICD-10-PCS; 2022-04-29)
PROC: 0D748DZ Dilation of Esophagogastric Junction with Intraluminal Device, Via Natural or Artificial Opening Endoscopic (ICD-10-PCS; 2022-04-29)
PROC: 0DBN8ZX Excision of Sigmoid Colon, Via Natural or Artificial Opening Endoscopic, Diagnostic (ICD-10-PCS; principal; 2022-04-29 09:15)
DX: Z12.11 Encounter for screening for malignant neoplasm of colon (principal); K31.89 Other diseases of stomach and duodenum; K29.50 Unspecified chronic gastritis without bleeding; K22.2 Esophageal obstruction; D12.5 Benign neoplasm of sigmoid colon; R10.13 Epigastric pain
CPT/HCPCS: 88305-TC; 88342-TC

== ENCOUNTER 2022-09-20 03:17 | Inpatient (IN) | payer BC ==
[2022-09-20] MEDS ORDERED: ACETAMINOPHEN 1000 MG/100 ML BAG IVPB ONE (04:14)
[2022-09-20] MEDS ORDERED: SODIUM CHLORIDE 0.9% 500 ML INFUS.BAG IV ONE (04:14)
[2022-09-20] MEDS ORDERED: FAMOTIDINE 20 MG/50 ML IVPB 20 MG/50 ML MG IVPB ONE ×2 (04:14→04:39)
[2022-09-20] MEDS ORDERED: ONDANSETRON 4 MG/2 ML VIAL IVPUSH ONE (04:14)
[2022-09-20] MEDS ORDERED: MAG HYDROX/AL HYDROX/SIMETH 30 ML UNIT-DOSE CUP PO ONE (04:15)
[2022-09-20] MEDS ORDERED: PETROLATUM, WHITE 30 GM TUBE TP ONE (04:17)
[2022-09-20] MEDS ORDERED: ONDANSETRON 4 MG/2 ML VIAL ONE (04:39)
[2022-09-20] MEDS ORDERED: ACETAMINOPHEN INJECTION 100 ML IVPB ONE (04:39)
[2022-09-20] MEDS ORDERED: MAG HYDROX/AL HYDROX/SIMETH 30 ML UNIT-DOSE CUP ONE (04:39)
[2022-09-20 05:57] LABS: PH,URINE 6.5 (5.0-8.0); URINE APPEARANCE CLEAR; URINE BILIRUBIN NEGATIVE (NEGATIVE); URINE COLOR YELLOW; URINE GLUCOSE (UA) NEGATIVE (NEGATIVE); URINE KETONE 1+ (NEGATIVE); URINE LEUK ESTERASE NEGATIVE (NEGATIVE); URINE NITRITE NEGATIVE (NEGATIVE); URINE PROTEIN TRACE (NEGATIVE); URINE UROBILINOGEN 0.2 mg/dL (0.2-1.0)
[2022-09-20 06:07] LABS: INR 0.97 (0.83-1.09); PROTHROMBIN TIME (PATIENT) 11.2 SEC (9.7-13.0)
[2022-09-20 06:09] LABS: ACTIVATED PTT 31.9 SECONDS (25.2-36.5)
[2022-09-20 06:19] LABS: CALCIUM 9.6 mg/dL (8.5-10.1)
[2022-09-20 06:20] LABS: ALBUMIN 3.5 g/dl (3.4-5.0); BLOOD UREA NITROGEN 10.4 mg/dL (7-18); MAGNESIUM 1.4 mg/dL (1.8-2.4)
[2022-09-20 06:22] LABS: CREATININE 0.7 mg/dL (0.55-1.3); PHOSPHOROUS 3.1 mg/dL (2.5-4.9)
[2022-09-20 06:23] LABS: TOT PROT 7.2 g/dl (6.4-8.2)
[2022-09-20 06:24] LABS: BILIRUBIN,TOTAL 0.7 mg/dL (0.2-1)
[2022-09-20 06:25] LABS: BASO % 0.7 % (0-2.0); EOS % 2.4 % (0-4.5); HEMATOCRIT 37.3 % (32.4-45.2); HEMOGLOBIN 12.6 GM/dL (10.7-15.3); LYMPH % 23.4 % (8-40); MCH 31.3 pg (25.7-33.7); MCHC 33.8 g/dl (32.0-36.0); MEAN CELL VOLUME 92.8 fl (80-96); MONO % 10.2 % (3.8-10.2); NEUT % 63.3 % (42.8-82.8); PLATELET COUNT 146 10^3/uL (134-434); RBC 4.02 M/mm3 (3.60-5.2); RDW 17.6 % (11.6-15.6); WHITE BLOOD COUNT 5.8 K/mm3 (4.0-10.0)
[2022-09-20] MEDS ORDERED: MAGNESIUM SULF 50% (8.12 MEQ/2 ML-1 GM VIAL) IVPB ONE (07:07)
[2022-09-20] MEDS ORDERED: MAGNESIUM SULFATE IN WATER 2 GM/50 ML IVPB IVPB ONE (07:18)
[2022-09-20] MEDS ORDERED: morphine CARPU-JECT 4 MG/1 ML DISP.SYRIN IVPUSH ONE (09:52)
[2022-09-20] MEDS ORDERED: DEXTROSE 5%-LACTATED RINGERS 1,000 ML IV SCH (10:00)
[2022-09-20] MEDS ORDERED: morphine SULFATE 4 MG/ML VIAL ONE (10:07)
[2022-09-20 11:44] LABS: LIPASE 596 U/L (73-393)
[2022-09-20] MEDS ORDERED: LACTATED RINGERS SOLUTION 1,000 ML/1,000 ML INFUS.BAG IV SCH (12:00)
[2022-09-20] MEDS ORDERED: PIPERACILLIN/TAZOB 3.375 GM 3.375 GM in DEXTROSE 5%-WATER - 50 ML IVPB SCH (12:30)
[2022-09-20] MEDS ORDERED: LORazepam 2 MG TABLET PO PRN (12:44)
[2022-09-20] MEDS ORDERED: HYDROmorphone HCl 2 MG/ML VIAL IVPUSH ONE (13:08)
[2022-09-20] MEDS: DEXTROSE 5%-LACTATED RINGERS 1,000 ML IV SCH (13:11)
[2022-09-20] MEDS ORDERED: HYDROmorphone HCl 2 MG/ML VIAL ONE (13:12)
[2022-09-20] MEDS ORDERED: PIPERACILLIN/TAZOB 3.375 GM 3.375 GM/50 ML BAG IVPB ONE (13:13)
[2022-09-20] MEDS: PANTOPRAZOLE SODIUM 40 MG VIAL IVPUSH SCH (15:19)
[2022-09-20] MEDS: THIAMINE HCL 200 MG/2 ML VIAL IM SCH (15:19)
[2022-09-20] MEDS: FOLIC ACID 1 MG TABLET (FP) PO SCH (15:26)
[2022-09-20] MEDS: NICOTINE 14 MG/24 HOURS TOPICAL PATCH TD SCH (15:26)
[2022-09-20] MEDS: ACETAMINOPHEN 1000 MG/100 ML BAG IVPB PRN ×2 (15:45→21:14)
[2022-09-20] MEDS: PIPERACILLIN/TAZOB 3.375 GM 3.375 GM in DEXTROSE 5%-WATER - 50 ML IVPB SCH (17:24)
[2022-09-20 20:58] VITALS: BMI 16.9
[2022-09-20] MEDS ORDERED: diphenhydrAMINE HCL 25 MG CAPSULE (FP) PO ONE (21:16)
[2022-09-20] MEDS: ROSUVASTATIN CA 5 MG TABLET PO SCH (22:56)
[2022-09-21] MEDS: DEXTROSE 5%-LACTATED RINGERS 1,000 ML IV SCH (00:41)
[2022-09-21] MEDS: PIPERACILLIN/TAZOB 3.375 GM 3.375 GM in DEXTROSE 5%-WATER - 50 ML IVPB SCH ×2 (02:53→11:26)
[2022-09-21] MEDS ORDERED: ONDANSETRON 4 MG/2 ML VIAL IVPUSH ONE (04:15)
[2022-09-21] MEDS: ACETAMINOPHEN 1000 MG/100 ML BAG IVPB PRN ×4 (05:32→23:03)
[2022-09-21 09:21] LABS: BASO % 0.8 % (0-2.0); EOS % 3.1 % (0-4.5); HEMATOCRIT 37.8 % (32.4-45.2); HEMOGLOBIN 12.9 GM/dL (10.7-15.3); LYMPH % 21.5 % (8-40); MCH 31.8 pg (25.7-33.7); MEAN CELL VOLUME 93.4 fl (80-96); MONO % 8.8 % (3.8-10.2); NEUT % 65.8 % (42.8-82.8); PLATELET COUNT 117 10^3/uL (134-434); RBC 4.04 M/mm3 (3.60-5.2); RDW 17.2 % (11.6-15.6); WHITE BLOOD COUNT 4.8 K/mm3 (4.0-10.0)
[2022-09-21 09:24] LABS: INR 0.97 (0.83-1.09); PROTHROMBIN TIME (PATIENT) 11.2 SEC (9.7-13.0)
[2022-09-21 09:37] LABS: ALBUMIN 3.8 g/dl (3.4-5.0); BLOOD UREA NITROGEN 4.7 mg/dL (7-18)
[2022-09-21 09:39] LABS: CREATININE 0.8 mg/dL (0.55-1.3)
[2022-09-21 09:41] LABS: BILIRUBIN,TOTAL 0.7 mg/dL (0.2-1); TOT PROT 7.8 g/dl (6.4-8.2)
[2022-09-21 10:01] LABS: MAGNESIUM 1.3 mg/dL (1.8-2.4)
[2022-09-21 10:04] LABS: PHOSPHOROUS 2.9 mg/dL (2.5-4.9)
[2022-09-21] MEDS ORDERED: MAGNESIUM SULF 50% (8.12 MEQ/2 ML-1 GM VIAL) IVPB ONE (10:15)
[2022-09-21] MEDS: KCL 10 MEQ IVPB 10 MEQ/100 ML INFUS.BAG IVPB SCH ×2 (11:34→14:12)
[2022-09-21] MEDS: NICOTINE 14 MG/24 HOURS TOPICAL PATCH TD SCH (11:35)
[2022-09-21] MEDS: metoPROLOL SUCCINATE 25 MG TAB.SR.24H (FP) PO SCH (11:35)
[2022-09-21] MEDS: THIAMINE HCL 200 MG/2 ML VIAL IM SCH (11:35)
[2022-09-21] MEDS: FOLIC ACID 1 MG TABLET (FP) PO SCH (11:35)
[2022-09-21] MEDS: PANTOPRAZOLE SODIUM 40 MG VIAL IVPUSH SCH (11:35)
[2022-09-21] MEDS ORDERED: POTASSIUM CHLORIDE ORAL LIQUID 20 MEQ/15 ML PO ONE (11:49)
[2022-09-21] MEDS ORDERED: POLYETHYLENE GLYCOL (HEALTHYLAX) 3350 17 GM PACKET PO PRN (12:33)
[2022-09-21] MEDS: DOCUSATE SODIUM 100 MG CAPSULE (FP) PO SCH ×2 (14:51→22:34)
[2022-09-21] MEDS: LORATADINE 10 MG TABLET PO SCH (14:51)
[2022-09-21] MEDS: TOBRAMYCIN/DEXAMETHASONE OPHTH. OINTMENT 1 TUBE OU SCH ×2 (14:51→22:34)
[2022-09-21] MEDS: TETRAHYDROZOLINE HCL EYE DROPS OU SCH ×2 (14:51→22:35)
[2022-09-21] MEDS ORDERED: MAGNESIUM OXIDE 400 MG TABLET (FP) PO ONE (16:51)
[2022-09-21 21:23] VITALS: RESP 20
[2022-09-21] MEDS: ROSUVASTATIN CA 5 MG TABLET PO SCH (22:34)
[2022-09-21] MEDS ORDERED: LORazepam 1 MG TABLET PO PRN (22:37)
[2022-09-22] MEDS: TOBRAMYCIN/DEXAMETHASONE OPHTH. OINTMENT 1 TUBE OU SCH ×2 (05:45→16:37)
[2022-09-22 07:29] LABS: BASO % 0.6 % (0-2.0); EOS % 6.3 % (0-4.5); HEMATOCRIT 37.3 % (32.4-45.2); HEMOGLOBIN 12.5 GM/dL (10.7-15.3); LYMPH % 31.6 % (8-40); MCH 31.3 pg (25.7-33.7); MCHC 33.5 g/dl (32.0-36.0); MEAN CELL VOLUME 93.6 fl (80-96); MEAN PLT VOLUME 9.3 fl (7.5-11.1); MONO % 9.9 % (3.8-10.2); NEUT % 51.6 % (42.8-82.8); PLATELET COUNT 108 10^3/uL (134-434); RBC 3.98 M/mm3 (3.60-5.2); RDW 17.5 % (11.6-15.6); WHITE BLOOD COUNT 3.9 K/mm3 (4.0-10.0)
[2022-09-22 07:49] LABS: CALCIUM 9.5 mg/dL (8.5-10.1)
[2022-09-22 07:50] LABS: ALBUMIN 3.5 g/dl (3.4-5.0); MAGNESIUM 1.5 mg/dL (1.8-2.4)
[2022-09-22 07:53] LABS: CREATININE 0.7 mg/dL (0.55-1.3)
[2022-09-22 07:54] LABS: BILIRUBIN,TOTAL 0.6 mg/dL (0.2-1); TOT PROT 7.2 g/dl (6.4-8.2)
[2022-09-22] MEDS ORDERED: MAGNESIUM OXIDE 400 MG TABLET (FP) PO ONE ×2 (08:52→12:15)
[2022-09-22] MEDS: DOCUSATE SODIUM 100 MG CAPSULE (FP) PO SCH (11:40)
[2022-09-22] MEDS: ACETAMINOPHEN 1000 MG/100 ML BAG IVPB PRN (11:40)
[2022-09-22] MEDS: metoPROLOL SUCCINATE 25 MG TAB.SR.24H (FP) PO SCH (11:40)
[2022-09-22] MEDS: FOLIC ACID 1 MG TABLET (FP) PO SCH (11:40)
[2022-09-22] MEDS: PANTOPRAZOLE SODIUM 40 MG VIAL IVPUSH SCH (11:40)
[2022-09-22] MEDS: LORATADINE 10 MG TABLET PO SCH (11:40)
[2022-09-22] MEDS: THIAMINE HCL 200 MG/2 ML VIAL IM SCH (11:41)
[2022-09-22] MEDS: NICOTINE 14 MG/24 HOURS TOPICAL PATCH TD SCH (11:42)
[2022-09-22] MEDS: TETRAHYDROZOLINE HCL EYE DROPS OU SCH (11:42)
[2022-09-22 16:30] VITALS: BP 153/92; PULSE 61; TEMP 98.6
== END 2022-09-22 17:21 | disposition home or self-care (01) | DRG 440 ==
LOC: JER 03:17 → JERBED 11:25 → J8W 14:25
PROVIDERS: ADMIT Internal Medicine; ATTEND Nurse Practitioner Family
DX: K85.20 Alcohol induced acute pancreatitis without necrosis or infection (principal); K29.60 Other gastritis without bleeding; I10 Essential (primary) hypertension; K21.9 Gastro-esophageal reflux disease without esophagitis; F41.9 Anxiety disorder, unspecified; K76.0 Fatty (change of) liver, not elsewhere classified; E78.5 Hyperlipidemia, unspecified; M10.9 Gout, unspecified; F10.20 Alcohol dependence, uncomplicated; F17.210 Nicotine dependence, cigarettes, uncomplicated; K82.8 Other specified diseases of gallbladder; K59.09 Other constipation; Z78.0 Asymptomatic menopausal state
CPT/HCPCS: 0241U-QW; 36415; 71045-TC-FY; 74177-TC; 74181-TC; 76705-TC; 80053; 80307; 81003; 82977; 83690; 83735; 84100; 84484; 85025; 85610; 85730; 86850; 86900; 86901; 87086; 93005; 93010; 99285-25; Q9967

== ENCOUNTER 2023-12-10 18:46 | Inpatient (IN) | payer BC ==
[2023-12-10] MEDS ORDERED: ONDANSETRON 4 MG/2 ML VIAL ONE (20:37)
[2023-12-10] MEDS ORDERED: ACETAMINOPHEN INJECTION 100 ML IVPB ONE (20:37)
[2023-12-10] MEDS ORDERED: FAMOTIDINE 20 MG/50 ML IVPB 20 MG/50 ML MG IVPB ONE (20:37)
[2023-12-10] MEDS: ACETAMINOPHEN 1000 MG/100 ML BAG IVPB ONE (20:58)
[2023-12-10] MEDS: FAMOTIDINE 20 MG/50 ML IVPB 20 MG/50 ML MG IVPB ONE (20:58)
[2023-12-10] MEDS: ONDANSETRON 4 MG/2 ML VIAL IVPUSH ONE (20:58)
[2023-12-10 21:05] LABS: BASO % 0.3 % (0-2.0); EOS % 0.1 % (0-4.5); HEMATOCRIT 41.1 % (32.4-45.2); HEMOGLOBIN 14.3 GM/dL (10.7-15.3); LYMPH % 9.8 % (8-40); MCH 34.5 pg (25.7-33.7); MCHC 34.8 g/dl (32.0-36.0); MEAN CELL VOLUME 99.1 fl (80-96); MONO % 6.1 % (3.8-10.2); NEUT % 83.7 % (42.8-82.8); RBC 4.15 M/mm3 (3.60-5.2); RDW 15.5 % (11.6-15.6); WHITE BLOOD COUNT 5.9 K/mm3 (4.0-10.0)
[2023-12-10 21:22] LABS: MEAN PLT VOLUME 10.3 fl (7.5-11.1); PLATELET COUNT 125 10^3/uL (134-434)
[2023-12-10 21:28] LABS: POTASSIUM 5.7 mmol/L (3.5-5.1)
[2023-12-10 21:30] LABS: ALBUMIN 4.4 g/dl (3.4-5.0); BLOOD UREA NITROGEN 11.3 mg/dL (7-18); CALCIUM 10.1 mg/dL (8.5-10.1)
[2023-12-10] MEDS ORDERED: morphine SULFATE 4 MG/ML VIAL ONE ×2 (21:31→22:41)
[2023-12-10 21:33] LABS: CREATININE 1.2 mg/dL (0.55-1.3)
[2023-12-10 21:35] LABS: BILIRUBIN,TOTAL 2.2 mg/dL (0.2-1)
[2023-12-10] MEDS: morphine CARPU-JECT 4 MG/1 ML DISP.SYRIN IVPUSH ONE ×2 (21:36→22:50)
[2023-12-10 21:44] LABS: LACTIC ACID 2.3 mmol/L (0.4-2.0)
[2023-12-10] MEDS: SODIUM CHLORIDE 0.9% 500 ML INFUS.BAG IV ONE (22:50)
[2023-12-10 22:59] LABS: URINE APPEARANCE CLEAR; URINE BILIRUBIN NEGATIVE (NEGATIVE); URINE COLOR YELLOW; URINE GLUCOSE (UA) NEGATIVE (NEGATIVE); URINE KETONE 1+ (NEGATIVE); URINE LEUK ESTERASE NEGATIVE (NEGATIVE); URINE NITRITE NEGATIVE (NEGATIVE); URINE PROTEIN TRACE (NEGATIVE); URINE UROBILINOGEN 0.2 mg/dL (0.2-1.0)
[2023-12-10] MEDS ORDERED: HYDROmorphone HCL CARPU-JECT 2 MG/1 ML DISP.SYRIN ONE (23:17)
[2023-12-10] MEDS: HYDROmorphone HCl 2 MG/ML VIAL IVPUSH ONE (23:20)
[2023-12-11 00:37] LABS: POTASSIUM 3.6 mmol/L (3.5-5.1)
[2023-12-11 00:39] LABS: BLOOD UREA NITROGEN 9.6 mg/dL (7-18)
[2023-12-11 00:42] LABS: CREATININE 0.8 mg/dL (0.55-1.3)
[2023-12-11 01:07] LABS: CALCIUM 8.5 mg/dL (8.5-10.1)
[2023-12-11] MEDS ORDERED: HYDROmorphone HCL CARPU-JECT 2 MG/1 ML DISP.SYRIN ONE (02:23)
[2023-12-11] MEDS: HYDROmorphone HCl 2 MG/ML VIAL IVPUSH ONE (02:29)
[2023-12-11] MEDS: KETOROLAC TROMETHAMINE 15 MG/ML VIAL IVPUSH ONE (04:00)
[2023-12-11] MEDS: LACTATED RINGERS SOLUTION 1,000 ML/1,000 ML INFUS.BAG IV SCH ×2 (04:11→10:03)
[2023-12-11] MEDS ORDERED: ONDANSETRON 4 MG/2 ML VIAL IVPUSH PRN (04:18)
[2023-12-11] MEDS ORDERED: MORPHINE SULFATE 2 MG/ML SYRINGE ONE ×2 (06:56→12:52)
[2023-12-11] MEDS: MORPHINE SULFATE 2 MG/ML SYRINGE IM PRN (07:00)
[2023-12-11 07:20] LABS: POTASSIUM 4.4 mmol/L (3.5-5.1)
[2023-12-11] MEDS ORDERED: NICOTINE 21 MG/24 HOURS TOPICAL PATCH ONE (07:20)
[2023-12-11 07:22] LABS: CALCIUM 9.1 mg/dL (8.5-10.1)
[2023-12-11 07:23] LABS: ALBUMIN 3.8 g/dl (3.4-5.0); BLOOD UREA NITROGEN 9.6 mg/dL (7-18); MAGNESIUM 1.7 mg/dL (1.8-2.4)
[2023-12-11 07:26] LABS: CREATININE 0.7 mg/dL (0.55-1.3); PHOSPHOROUS 3.7 mg/dL (2.5-4.9)
[2023-12-11 07:27] LABS: BILIRUBIN,TOTAL 2.2 mg/dL (0.2-1); TOT PROT 7.2 g/dl (6.4-8.2)
[2023-12-11] MEDS: NICOTINE 21 MG/24 HOURS TOPICAL PATCH TD SCH (07:27)
[2023-12-11] MEDS ORDERED: MORPHINE SULFATE 2 MG/ML SYRINGE IM PRN (08:22)
[2023-12-11] MEDS ORDERED: amLODIPine BESYLATE 5 MG TABLET (FP) ONE (08:31)
[2023-12-11] MEDS ORDERED: KETOROLAC TROMETHAMINE 15 MG/ML VIAL ONE (08:32)
[2023-12-11] MEDS: KETOROLAC TROMETHAMINE 15 MG/ML VIAL IVPUSH SCH (08:46)
[2023-12-11] MEDS: amLODIPine BESYLATE 5 MG TABLET (FP) PO ONE (08:46)
[2023-12-11 08:52] LABS: BASO % 0.6 % (0-2.0); EOS % 0.1 % (0-4.5); HEMATOCRIT 40.7 % (32.4-45.2); HEMOGLOBIN 13.8 GM/dL (10.7-15.3); MCH 33.9 pg (25.7-33.7); MEAN CELL VOLUME 99.8 fl (80-96); MEAN PLT VOLUME 9.8 fl (7.5-11.1); MONO % 2.3 % (3.8-10.2); PLATELET COUNT 84 10^3/uL (134-434); RBC 4.08 M/mm3 (3.60-5.2); RDW 15.3 % (11.6-15.6); WHITE BLOOD COUNT 7.4 K/mm3 (4.0-10.0)
[2023-12-11] MEDS ORDERED: THIAMINE 100 MG TABLET ONE (09:00)
[2023-12-11] MEDS ORDERED: FOLIC ACID 1 MG TABLET (FP) ONE (09:01)
[2023-12-11] MEDS ORDERED: ENOXAPARIN NA (PORCINE) 40 MG/0.4 ML DISP.SYRIN SQ ONE (09:01)
[2023-12-11] MEDS: metoPROLOL SUCCINATE 25 MG TAB.SR.24H (FP) PO SCH (09:11)
[2023-12-11] MEDS: FOLIC ACID 1 MG TABLET (FP) PO SCH (09:11)
[2023-12-11] MEDS: ENOXAPARIN NA (PORCINE) 40 MG/0.4 ML DISP.SYRIN SQ SCH (09:11)
[2023-12-11] MEDS: THIAMINE 100 MG TABLET PO SCH (09:11)
[2023-12-11] MEDS: PANTOPRAZOLE 40 MG TABLET PO SCH (09:11)
[2023-12-11 12:16] LABS: BILIRUBIN,DIRECT 0.5 mg/dL (0.0-0.2)
[2023-12-11 16:30] VITALS: BMI 18.8
[2023-12-12 08:00] LABS: BASO % 0.5 % (0-2.0); EOS % 0.4 % (0-4.5); HEMOGLOBIN 12.2 GM/dL (10.7-15.3); LYMPH % 9.9 % (8-40); MCH 33.6 pg (25.7-33.7); MEAN CELL VOLUME 98.7 fl (80-96); MONO % 3.5 % (3.8-10.2); NEUT % 85.7 % (42.8-82.8); PLATELET COUNT 59 10^3/uL (134-434); RBC 3.65 M/mm3 (3.60-5.2); RDW 15.2 % (11.6-15.6); WHITE BLOOD COUNT 5.3 K/mm3 (4.0-10.0)
[2023-12-12 08:13] LABS: POTASSIUM 3.4 mmol/L (3.5-5.1)
[2023-12-12 08:20] LABS: CALCIUM 8.5 mg/dL (8.5-10.1)
[2023-12-12 08:21] LABS: ALBUMIN 3.3 g/dl (3.4-5.0); BLOOD UREA NITROGEN 9.2 mg/dL (7-18)
[2023-12-12 08:24] LABS: CREATININE 0.6 mg/dL (0.55-1.3)
[2023-12-12 08:25] LABS: TOT PROT 6.1 g/dl (6.4-8.2)
[2023-12-12 08:26] LABS: BILIRUBIN,DIRECT 1.4 mg/dL (0.0-0.2); BILIRUBIN,TOTAL 2.2 mg/dL (0.2-1)
[2023-12-12 11:09] LABS: INR 1.63 (0.83-1.09); PROTHROMBIN TIME (PATIENT) 18.5 SEC (9.7-13.0)
[2023-12-12] MEDS ORDERED: SODIUM CHLORIDE 1,000 ML IV SCH (11:15)
[2023-12-12] MEDS: LACTATED RINGERS SOLUTION 1,000 ML/1,000 ML INFUS.BAG IV SCH (14:16)
[2023-12-12] MEDS: POTASSIUM CHLORIDE ORAL LIQUID 20 MEQ/15 ML PO ONE (14:17)
[2023-12-12] MEDS: MAGNESIUM 1GM/D5W 100ML - 100 ML IVPB IVPB ONE (14:21)
[2023-12-12] MEDS: MAGNESIUM SULF 50% (8.12 MEQ/2 ML-1 GM VIAL) IVPB ONE (14:22)
[2023-12-12] MEDS: INDOMETHACIN 50 MG RECTAL SUPPOSITORY PR ONE (15:55)
[2023-12-12] MEDS: prednisoLONE SODIUM PHOSPHATE 15 MG/5 ML ORAL SOLN BOTTLE PO ONE (17:59)
[2023-12-12] MEDS: HYDROmorphone HCL CARPU-JECT 2 MG/1 ML DISP.SYRIN IVPUSH ONE (18:56)
[2023-12-12] MEDS: HYDROmorphone HCL CARPU-JECT 2 MG/1 ML DISP.SYRIN IVPB ONE (19:27)
[2023-12-12] MEDS ORDERED: ROSUVASTATIN CA 5 MG TABLET PO SCH (22:00)
[2023-12-13 08:32] LABS: BASO % 0.5 % (0-2.0); HEMATOCRIT 35.5 % (32.4-45.2); HEMOGLOBIN 11.9 GM/dL (10.7-15.3); LYMPH % 12.4 % (8-40); MCH 33.7 pg (25.7-33.7); MCHC 33.7 g/dl (32.0-36.0); MEAN PLT VOLUME 10.1 fl (7.5-11.1); MONO % 7.6 % (3.8-10.2); NEUT % 79.5 % (42.8-82.8); PLATELET COUNT 80 10^3/uL (134-434); RBC 3.54 M/mm3 (3.60-5.2); RDW 15.4 % (11.6-15.6); WHITE BLOOD COUNT 3.1 K/mm3 (4.0-10.0)
[2023-12-13 08:39] LABS: INR 1.32 (0.83-1.09); PROTHROMBIN TIME (PATIENT) 14.8 SEC (9.7-13.0)
[2023-12-13 08:42] LABS: ACTIVATED PTT 28.2 SECONDS (25.2-36.5)
[2023-12-13 08:52] LABS: POTASSIUM 3.6 mmol/L (3.5-5.1)
[2023-12-13 08:59] LABS: ALBUMIN 3.1 g/dl (3.4-5.0); BLOOD UREA NITROGEN 9.6 mg/dL (7-18)
[2023-12-13 09:00] LABS: CALCIUM 8.7 mg/dL (8.5-10.1); MAGNESIUM 1.5 mg/dL (1.8-2.4)
[2023-12-13 09:02] LABS: BILIRUBIN,DIRECT 0.9 mg/dL (0.0-0.2); CREATININE 0.6 mg/dL (0.55-1.3)
[2023-12-13 09:04] LABS: BILIRUBIN,TOTAL 1.4 mg/dL (0.2-1); TOT PROT 5.9 g/dl (6.4-8.2)
[2023-12-13] MEDS: amLODIPine BESYLATE 10 MG TABLET (FP) PO SCH (09:36)
[2023-12-13] MEDS: MAGNESIUM 2GM/50ML STERILE WATER IVPB IVPB ONE (12:01)
[2023-12-13] MEDS: LACTATED RINGERS SOLUTION 1,000 ML/1,000 ML INFUS.BAG IV SCH (12:01)
[2023-12-13] MEDS: NAPH,MB-DB/K PH,MBDB POWDER PACKET PO SCH (13:22)
[2023-12-13] MEDS: traMADol HCL 50 MG TABLET PO ONE (23:17)
[2023-12-14] MEDS ORDERED: SENNOSIDES 8.8 MG/5 ML SYRUP PO PRN (02:51)
[2023-12-14] MEDS ORDERED: BISACODYL 10 MG SUPP.RECT PR PRN (02:53)
[2023-12-14] MEDS: POLYETHYLENE GLYCOL (HEALTHYLAX) 3350 17 GM PACKET PO ONE (07:18)
[2023-12-14] MEDS: MAGNESIUM SULFATE IN WATER 2 GM/50 ML IVPB IVPB ONE (07:43)
[2023-12-14] MEDS: SENNOSIDES 8.8 MG/5 ML SYRUP PO ONE (07:43)
[2023-12-14] MEDS: KETOROLAC TROMETHAMINE 15 MG/ML VIAL IVPUSH SCH (08:56)
[2023-12-14 09:23] LABS: BASO % 0.3 % (0-2.0); EOS % 0.3 % (0-4.5); HEMATOCRIT 35.1 % (32.4-45.2); HEMOGLOBIN 12.2 GM/dL (10.7-15.3); LYMPH % 15.5 % (8-40); MCH 33.9 pg (25.7-33.7); MCHC 34.8 g/dl (32.0-36.0); MEAN CELL VOLUME 97.5 fl (80-96); MEAN PLT VOLUME 9.5 fl (7.5-11.1); MONO % 9.9 % (3.8-10.2); PLATELET COUNT 92 10^3/uL (134-434); RDW 15.5 % (11.6-15.6); WHITE BLOOD COUNT 5.6 K/mm3 (4.0-10.0)
[2023-12-14 09:36] LABS: ALBUMIN 3.5 g/dl (3.4-5.0); MAGNESIUM 2.8 mg/dL (1.8-2.4)
[2023-12-14 09:38] LABS: PHOSPHOROUS 2.3 mg/dL (2.5-4.9)
[2023-12-14 09:40] LABS: BILIRUBIN,TOTAL 1.6 mg/dL (0.2-1); TOT PROT 6.7 g/dl (6.4-8.2)
[2023-12-14] MEDS: POLYETHYLENE GLYCOL (HEALTHYLAX) 3350 17 GM PACKET PO SCH (09:42)
[2023-12-14] MEDS ORDERED: POTASSIUM CHLORIDE TABS 10 MEQ TABLET.ER (FP) PO SCH (10:00)
[2023-12-14] MEDS: traMADol HCL 50 MG TABLET PO PRN (20:54)
[2023-12-14] MEDS ORDERED: MELATONIN 1 MG TABLET PO SCH (22:00)
[2023-12-14] MEDS: MELATONIN 5 MG TABLETS PO SCH (22:07)
[2023-12-15] MEDS: BISACODYL 10 MG SUPP.RECT PR PRN (09:37)
[2023-12-15 09:43] LABS: BASO % 0.3 % (0-2.0); EOS % 0.7 % (0-4.5); HEMOGLOBIN 12.5 GM/dL (10.7-15.3); LYMPH % 16.4 % (8-40); MCH 33.5 pg (25.7-33.7); MCHC 33.8 g/dl (32.0-36.0); MEAN CELL VOLUME 99.2 fl (80-96); MEAN PLT VOLUME 10.5 fl (7.5-11.1); MONO % 15.5 % (3.8-10.2); NEUT % 67.1 % (42.8-82.8); PLATELET COUNT 105 10^3/uL (134-434); RBC 3.73 M/mm3 (3.60-5.2); RDW 15.6 % (11.6-15.6); WHITE BLOOD COUNT 5.9 K/mm3 (4.0-10.0)
[2023-12-15] MEDS ORDERED: ACETAMINOPHEN 325 MG TABLET (FP) PO PRN (12:16)
[2023-12-15 12:34] LABS: BASO % 0.4 % (0-2.0); EOS % 0.6 % (0-4.5); HEMATOCRIT 38.2 % (32.4-45.2); HEMOGLOBIN 12.9 GM/dL (10.7-15.3); LYMPH % 14.5 % (8-40); MCH 33.3 pg (25.7-33.7); MCHC 33.8 g/dl (32.0-36.0); MEAN CELL VOLUME 98.5 fl (80-96); MEAN PLT VOLUME 9.3 fl (7.5-11.1); MONO % 14.8 % (3.8-10.2); NEUT % 69.7 % (42.8-82.8); PLATELET COUNT 100 10^3/uL (134-434); RBC 3.88 M/mm3 (3.60-5.2); RDW 15.5 % (11.6-15.6); WHITE BLOOD COUNT 5.8 K/mm3 (4.0-10.0)
[2023-12-15 12:38] LABS: INR 1.17 (0.83-1.09); PROTHROMBIN TIME (PATIENT) 13.2 SEC (9.7-13.0)
[2023-12-15 13:12] LABS: CHLORIDE 90 mmol/L (98-107); SODIUM 131 mmol/L (136-145)
[2023-12-15 13:14] LABS: ALBUMIN 3.4 g/dl (3.4-5.0); BLOOD UREA NITROGEN 5.1 mg/dL (7-18); CO2 30 mmol/L (21-32); GLUCOSE,RANDOM 92 mg/dL (74-106)
[2023-12-15 13:15] LABS: CALCIUM 9.2 mg/dL (8.5-10.1)
[2023-12-15 13:19] LABS: BILIRUBIN,TOTAL 1.4 mg/dL (0.2-1); CREATININE 0.4 mg/dL (0.55-1.3); SGOT/AST 315 U/L (15-37); SGPT/ALT 825 U/L (13-61)
[2023-12-15 13:21] LABS: ALK PHOS 126 U/L (45-117); TOT PROT 6.9 g/dl (6.4-8.2)
[2023-12-15 13:27] LABS: ANION GAP 11 mmol/L (4-13); POTASSIUM 2.7 mmol/L (3.5-5.1)
[2023-12-15] MEDS: KETOROLAC TROMETHAMINE 15 MG/ML VIAL IVPUSH PRN (16:48)
[2023-12-15] MEDS: POTASSIUM CHLORIDE ORAL LIQUID 20 MEQ/15 ML PO SCH (21:49)
[2023-12-15] MEDS: KETOROLAC TROMETHAMINE 15 MG/ML VIAL IVPUSH ONE (21:55)
[2023-12-15] MEDS ORDERED: POTASSIUM CHLORIDE ORAL LIQUID 20 MEQ/15 ML PO SCH (22:00)
[2023-12-16 09:39] LABS: BASO % 0.2 % (0-2.0); EOS % 1.5 % (0-4.5); HEMATOCRIT 40.1 % (32.4-45.2); HEMOGLOBIN 13.9 GM/dL (10.7-15.3); LYMPH % 21.4 % (8-40); MCH 33.8 pg (25.7-33.7); MCHC 34.7 g/dl (32.0-36.0); MEAN CELL VOLUME 97.3 fl (80-96); MEAN PLT VOLUME 9.8 fl (7.5-11.1); MONO % 16.3 % (3.8-10.2); NEUT % 60.6 % (42.8-82.8); PLATELET COUNT 122 10^3/uL (134-434); RBC 4.12 M/mm3 (3.60-5.2); RDW 15.4 % (11.6-15.6); WHITE BLOOD COUNT 4.9 K/mm3 (4.0-10.0)
[2023-12-16 09:48] LABS: POTASSIUM 3.1 mmol/L (3.5-5.1)
[2023-12-16 09:52] LABS: CALCIUM 9.5 mg/dL (8.5-10.1)
[2023-12-16 09:54] LABS: ALBUMIN 3.5 g/dl (3.4-5.0); BLOOD UREA NITROGEN 5.2 mg/dL (7-18); MAGNESIUM 1.3 mg/dL (1.8-2.4)
[2023-12-16 09:57] LABS: CREATININE 0.5 mg/dL (0.55-1.3); PHOSPHOROUS 3.4 mg/dL (2.5-4.9)
[2023-12-16 09:59] LABS: BILIRUBIN,TOTAL 1.3 mg/dL (0.2-1)
[2023-12-16] MEDS: MAGNESIUM SULFATE IN WATER 2 GM/50 ML IVPB IVPB ONE (10:36)
[2023-12-16] MEDS: POTASSIUM CHLORIDE TABS 20 MEQ TABLET.ER (FP) PO ONE (10:36)
[2023-12-16] MEDS: ACETAMINOPHEN 325 MG TABLET (FP) PO PRN (11:19)
[2023-12-16] MEDS: LACTULOSE 20 GM/30 ML UDC (FOR ORAL USE ONLY) PO ONE (14:35)
[2023-12-16 14:47] VITALS: PULSE 78; RESP 18; TEMP 98.4
[2023-12-16 15:28] VITALS: BP 127/73
== END 2023-12-16 15:42 | disposition home or self-care (01) | DRG 439 ==
LOC: JER 18:46 → JERBED 12-11 02:29 → J8W 12-11 14:13
PROVIDERS: ADMIT Internal Medicine; ATTEND Nurse Practitioner Acute Care
DX: K85.20 Alcohol induced acute pancreatitis without necrosis or infection (principal); E44.0 Moderate protein-calorie malnutrition; Z68.1 Body mass index [BMI] 19.9 or less, adult; I10 Essential (primary) hypertension; E78.5 Hyperlipidemia, unspecified; F17.210 Nicotine dependence, cigarettes, uncomplicated; K21.9 Gastro-esophageal reflux disease without esophagitis; E87.6 Hypokalemia; K59.00 Constipation, unspecified; I16.0 Hypertensive urgency; E83.42 Hypomagnesemia; F10.10 Alcohol abuse, uncomplicated
CPT/HCPCS: 36415; 74177-TC; 74181-TC; 76705-TC; 80048; 80053; 80076; 81003; 82248; 82550; 83516; 83605; 83690; 83735; 84100; 84484; 85025; 85610; 85730; 86038; 86140; 86704; 86803; 87086; 87340; 87517; 93005; 93010; 99285-25; J0131; Q9967

== ENCOUNTER 2024-12-03 08:40 | Inpatient (IN) | payer BC ==
[2024-12-03] MEDS ORDERED: ACETAMINOPHEN INJECTION 100 ML ONE (10:12)
[2024-12-03] MEDS: ACETAMINOPHEN 1000 MG/100 ML BAG IVPB ONE (10:15)
[2024-12-03] MEDS: SODIUM CHLORIDE 0.9% 500 ML INFUS.BAG IV ONE ×2 (10:15→12:00)
[2024-12-03 10:23] LABS: ABSOLUTE IMMATURE GRANULOCYTES 0.03 x10^3/uL (0.0-0.031); BASOPHILS # 0.02 x10^3/uL (0.01-0.08); EOSINOPHIL % 0.1 % (0.7-5.8); EOSINOPHILS # 0.01 x10^3/uL (0.04-0.36); MCHC 33.6 g/dl (32.2-35.5); MEAN CELL VOLUME 98.0 fl (79.4-94.8); MEAN PLT VOLUME 11.1 fl (9.4-12.3); MONOCYTE # 0.71 x10^3/uL (0.24-0.86); MONOCYTE % 7.7 % (4.7-12.5); RDW 13.6 % (12.3-16.6)
[2024-12-03 10:28] LABS: EPI CELLS >36 /uL (0-25.1); HYALINE CASTS 20 /uL (0-3.1); URINE APPEARANCE TURBID; URINE BACTERIA 4506 /uL (0-1359); URINE BILIRUBIN NEGATIVE (NEGATIVE); URINE COLOR DK YELLOW; URINE GLUCOSE (UA) NEGATIVE (NEGATIVE); URINE KETONE 3+ (NEGATIVE); URINE LEUK ESTERASE TRACE (NEGATIVE); URINE NITRITE NEGATIVE (NEGATIVE); URINE PROTEIN 2+ (NEGATIVE); URINE UROBILINOGEN 1.0 mg/dL (0.2-1.0); URINE WBC 300 /uL (0-25.8)
[2024-12-03 10:49] LABS: CO2 27.0 mmol/L (21-32); GLUCOSE,RANDOM 130.0 mg/dL (74-106)
[2024-12-03 10:51] LABS: SGPT/ALT 35.0 U/L (13-61)
[2024-12-03 10:52] LABS: CREATININE 0.9 mg/dL (0.55-1.3); SGOT/AST 68.0 U/L (15-37)
[2024-12-03 10:53] LABS: ALK PHOS 144.0 U/L (45-117)
[2024-12-03 10:58] LABS: TOT PROT 8.6 g/dl (6.4-8.2)
[2024-12-03 11:49] LABS: URINE CRYSTALS NONE SEEN /hpf; URINE RBC 108 /uL (0-23.9)
[2024-12-03] MEDS ORDERED: MORPHINE SULFATE 2 MG/ML SYRINGE ONE (12:57)
[2024-12-03] MEDS: MORPHINE SULFATE 2 MG/ML SYRINGE IVPUSH PRN (13:02)
[2024-12-03 13:17] LABS: LDL CHOLESTEROL (ONLY SJRH) 124.0 mg/dL (5-100)
[2024-12-03] MEDS: SODIUM CHLORIDE 1,000 ML IV SCH ×2 (14:39→22:50)
[2024-12-03 15:02] LABS: HIV INTERPRETATION NEGATIVE (NEGATIVE)
[2024-12-03 15:03] LABS: HCV DIAGNOSTIC IN-HOUSE W/RFLX NON-REACTIVE (NONREACTIVE)
[2024-12-03] MEDS: KETOROLAC TROMETHAMINE 15 MG/ML VIAL IVPUSH PRN (15:42)
[2024-12-03 16:32] VITALS: BMI 17.9
[2024-12-03] MEDS ORDERED: ACETAMINOPHEN 1000 MG/100 ML BAG IVPB SCH (17:30)
[2024-12-03] MEDS: ACETAMINOPHEN 1000 MG/100 ML BAG IVPB SCH (18:10)
[2024-12-03] MEDS: ACETAMINOPHEN 1000 MG/100 ML BAG IVPB PRN (21:57)
[2024-12-04] MEDS: LACTATED RINGERS SOLUTION 1,000 ML/1,000 ML INFUS.BAG IV SCH (09:10)
[2024-12-04 09:16] LABS: ABSOLUTE IMMATURE GRANULOCYTES 0.02 x10^3/uL (0.0-0.031); EOSINOPHIL % 0.8 % (0.7-5.8); EOSINOPHILS # 0.05 x10^3/uL (0.04-0.36)
[2024-12-04 09:18] LABS: BASOPHILS # 0.02 x10^3/uL (0.01-0.08); IMMATURE PLATELET FRACTION # 9.20 x10^3/uL; MCHC 33.6 g/dl (32.2-35.5); MEAN CELL VOLUME 97.1 fl (79.4-94.8); MEAN PLT VOLUME 11.5 fl (9.4-12.3); MONOCYTE # 0.63 x10^3/uL (0.24-0.86); MONOCYTE % 9.6 % (4.7-12.5); RDW 13.3 % (12.3-16.6)
[2024-12-04] MEDS: THIAMINE 100 MG TABLET PO SCH (09:30)
[2024-12-04] MEDS: PANTOPRAZOLE 40 MG TABLET PO SCH (09:30)
[2024-12-04] MEDS: FOLIC ACID 1 MG TABLET (FP) PO SCH (09:30)
[2024-12-04] MEDS: ENOXAPARIN NA (PORCINE) 40 MG/0.4 ML DISP.SYRIN SQ SCH (09:30)
[2024-12-04 09:58] LABS: CO2 22 mmol/L (21-32); GLUCOSE,RANDOM 66 mg/dL (74-106)
[2024-12-04] MEDS ORDERED: ROSUVASTATIN CA 5 MG TABLET PO SCH (10:00)
[2024-12-04 10:01] LABS: CREATININE 0.4 mg/dL (0.55-1.3); SGPT/ALT 25 U/L (13-61)
[2024-12-04 10:02] LABS: SGOT/AST 53 U/L (15-37)
[2024-12-04 10:03] LABS: TOT PROT 6.6 g/dl (6.4-8.2)
[2024-12-04 10:04] LABS: ALK PHOS 111 U/L (45-117)
[2024-12-04] MEDS: BISACODYL 5 MG TABLET.DR (FP) PO PRN (10:31)
[2024-12-04] MEDS: POTASSIUM CHLORIDE ORAL LIQUID 20 MEQ/15 ML PO ONE (10:31)
[2024-12-04] MEDS: KCL 10 MEQ IVPB 10 MEQ/100 ML INFUS.BAG IVPB SCH (10:47)
[2024-12-04] MEDS: ONDANSETRON 4 MG/2 ML VIAL IVPUSH PRN (11:31)
[2024-12-04] MEDS: MAGNESIUM SULFATE IN WATER 2 GM/50 ML IVPB IVPB ONE (11:33)
[2024-12-04] MEDS: LORazepam 4 MG/1 ML VIAL IVPUSH ONE (15:22)
[2024-12-04] MEDS ORDERED: hydrOXYzine HCL 100 MG/2 ML VIAL IM ONE (18:00)
[2024-12-04 18:52] LABS: CO2 28.0 mmol/L (21-32); GLUCOSE,RANDOM 104.0 mg/dL (74-106)
[2024-12-04 18:55] LABS: CREATININE 0.5 mg/dL (0.55-1.3)
[2024-12-04] MEDS: ACETAMINOPHEN 1000 MG/100 ML BAG IVPB ONE (19:52)
[2024-12-04] MEDS: NAPH,MB-DB/K PH,MBDB POWDER PACKET PO ONE (19:54)
[2024-12-04] MEDS: POTASSIUM PHOSPHATE 15 MM in DEXTROSE 5%-WATER - 250 ML IVPB ONE (21:35)
[2024-12-05] MEDS: KETOROLAC TROMETHAMINE 15 MG/ML VIAL IVPB ONE (02:15)
[2024-12-05] MEDS: KETOROLAC TROMETHAMINE 15 MG/ML VIAL IM ONE (05:17)
[2024-12-05 08:45] LABS: ABSOLUTE IMMATURE GRANULOCYTES 0.01 x10^3/uL (0.0-0.031); MONOCYTE % 8.8 % (4.7-12.5)
[2024-12-05 08:47] LABS: BASOPHILS # 0.03 x10^3/uL (0.01-0.08); EOSINOPHIL % 0.7 % (0.7-5.8); EOSINOPHILS # 0.05 x10^3/uL (0.04-0.36); IMMATURE PLATELET FRACTION # 11.30 x10^3/uL; MCHC 33.6 g/dl (32.2-35.5); MEAN CELL VOLUME 96.6 fl (79.4-94.8); MEAN PLT VOLUME 11.5 fl (9.4-12.3); MONOCYTE # 0.61 x10^3/uL (0.24-0.86); RDW 13.3 % (12.3-16.6)
[2024-12-05 09:44] LABS: ALK PHOS 115.0 U/L (45-117); CO2 29.0 mmol/L (21-32); CREATININE 0.6 mg/dL (0.55-1.3); GLUCOSE,RANDOM 88.0 mg/dL (74-106); SGOT/AST 40.0 U/L (15-37); SGPT/ALT 24.0 U/L (13-61); TOT PROT 7.0 g/dl (6.4-8.2)
[2024-12-05] MEDS: LACTATED RINGERS SOLUTION 1,000 ML/1,000 ML INFUS.BAG IV SCH (19:23)
[2024-12-05] MEDS: amLODIPine BESYLATE 5 MG TABLET (FP) PO SCH (21:20)
[2024-12-06] MEDS: MELATONIN 5 MG TABLETS PO PRN (01:59)
[2024-12-06] MEDS ORDERED: DEXTROSE 50%-WATER 25 GM/50 ML DISP.SYRIN IVPUSH PRN (07:27)
[2024-12-06 08:54] LABS: CO2 29.0 mmol/L (21-32); GLUCOSE,RANDOM 88.0 mg/dL (74-106)
[2024-12-06 08:57] LABS: CREATININE 0.4 mg/dL (0.55-1.3); SGOT/AST 34.0 U/L (15-37); SGPT/ALT 20.0 U/L (13-61)
[2024-12-06 08:58] LABS: TOT PROT 6.0 g/dl (6.4-8.2)
[2024-12-06 09:00] LABS: ALK PHOS 88.0 U/L (45-117)
[2024-12-06] MEDS: POTASSIUM CHLORIDE TABS 20 MEQ TABLET.ER (FP) PO SCH (09:23)
[2024-12-06] MEDS: MAGNESIUM SULFATE IN WATER 2 GM/50 ML IVPB IVPB ONE (09:23)
[2024-12-06] MEDS ORDERED: POTASSIUM CHLORIDE TABS 20 MEQ TABLET.ER (FP) PO SCH (10:00)
[2024-12-06] MEDS: POLYETHYLENE GLYCOL (HEALTHYLAX) 3350 17 GM PACKET PO SCH (15:52)
[2024-12-06] MEDS: DOCUSATE SODIUM 100 MG CAPSULE (FP) PO ONE (15:52)
[2024-12-06] MEDS: SODIUM CHLORIDE 1,000 ML IV SCH (18:18)
[2024-12-06] MEDS: hydrOXYzine HCL 100 MG/2 ML VIAL IM PRN (18:52)
[2024-12-06] MEDS: MAGNESIUM OXIDE 400 MG TABLET (FP) PO SCH (21:27)
[2024-12-07 09:07] LABS: MCHC 33.6 g/dl (32.2-35.5); MEAN CELL VOLUME 96.9 fl (79.4-94.8); MEAN PLT VOLUME 12.3 fl (9.4-12.3); RDW 13.5 % (12.3-16.6)
[2024-12-07 09:09] LABS: ABSOLUTE IMMATURE GRANULOCYTES 0.01 x10^3/uL (0.0-0.031); BASOPHILS # 0.01 x10^3/uL (0.01-0.08); EOSINOPHIL % 0.4 % (0.7-5.8); EOSINOPHILS # 0.03 x10^3/uL (0.04-0.36); MCHC 33.6 g/dl (32.2-35.5); MEAN CELL VOLUME 96.9 fl (79.4-94.8); MEAN PLT VOLUME 12.6 fl (9.4-12.3); MONOCYTE # 0.68 x10^3/uL (0.24-0.86); MONOCYTE % 9.9 % (4.7-12.5); RDW 13.5 % (12.3-16.6)
[2024-12-07 09:35] LABS: CO2 31.0 mmol/L (21-32); GLUCOSE,RANDOM 104.0 mg/dL (74-106)
[2024-12-07 09:36] LABS: CREATININE 0.5 mg/dL (0.55-1.3)
[2024-12-07 09:38] LABS: SGOT/AST 41.0 U/L (15-37); SGPT/ALT 24.0 U/L (13-61); TOT PROT 6.1 g/dl (6.4-8.2)
[2024-12-07 09:39] LABS: ALK PHOS 86.0 U/L (45-117)
[2024-12-07] MEDS ORDERED: BUPIVACAINE HCL/PF 0.25% (2.5MG/ML) 10 ML VIAL ONE (10:46)
[2024-12-07] MEDS ORDERED: MIDAZOLAM HCL 2 MG/2 ML SINGLE DOSE VIAL ONE (10:48)
[2024-12-07] MEDS ORDERED: SUCCINYLCHOLINE CHLORIDE 200 MG/10 ML SYRINGE ONE (10:48)
[2024-12-07] MEDS ORDERED: PROPOFOL 20 ML ONE (10:48)
[2024-12-07] MEDS ORDERED: ROCURONIUM BROMIDE 50 MG/5 ML SYRINGE ONE (10:49)
[2024-12-07] MEDS: BUPIVACAINE HCL/PF 0.25% (2.5MG/ML) 10 ML VIAL IJ ONE ×2 (11:56)
[2024-12-07] MEDS ORDERED: NEOSTIGMINE METHYLSULFATE 0.5 MG/1 ML - 10 ML MDV ONE (12:39)
[2024-12-07] MEDS ORDERED: ONDANSETRON 4 MG/2 ML VIAL IVPUSH PRN ×3 (13:05→13:20)
[2024-12-07] MEDS ORDERED: ACETAMINOPHEN INJECTION 100 ML ONE (13:07)
[2024-12-07] MEDS ORDERED: hydrOXYzine HCL 100 MG/2 ML VIAL IM PRN (13:20)
[2024-12-07] MEDS: SODIUM CHLORIDE 1,000 ML IV SCH (13:33)
[2024-12-07] MEDS: MAGNESIUM 2GM/50ML STERILE WATER IVPB IVPB ONE (15:08)
[2024-12-07] MEDS: ACETAMINOPHEN 500 MG TABLET (FP) PO SCH (20:43)
[2024-12-07] MEDS: amLODIPine BESYLATE 5 MG TABLET (FP) PO SCH (21:43)
[2024-12-07] MEDS: MAGNESIUM OXIDE 400 MG TABLET (FP) PO SCH (21:43)
[2024-12-07 22:06] LABS: IG G QN IMMUNOGLOBULIN 1337 mg/dL (586-1602); IGG SUBCLASS 1 884 mg/dL (248-810); IGG SUBCLASS 3 110 mg/dL (15-102)
[2024-12-08] MEDS: MELATONIN 5 MG TABLETS PO PRN (00:58)
[2024-12-08 09:06] LABS: BASOPHILS # 0.01 x10^3/uL (0.01-0.08); EOSINOPHIL % 0.0 % (0.7-5.8); EOSINOPHILS # 0.00 x10^3/uL (0.04-0.36); RDW 13.9 % (12.3-16.6)
[2024-12-08 09:08] LABS: ABSOLUTE IMMATURE GRANULOCYTES 0.09 x10^3/uL (0.0-0.031); IMMATURE PLATELET FRACTION # 17.90 x10^3/uL; MCHC 32.3 g/dl (32.2-35.5); MEAN CELL VOLUME 98.8 fl (79.4-94.8); MEAN PLT VOLUME 12.4 fl (9.4-12.3); MONOCYTE # 0.53 x10^3/uL (0.24-0.86); MONOCYTE % 8.1 % (4.7-12.5)
[2024-12-08] MEDS: FOLIC ACID 1 MG TABLET (FP) PO SCH (09:10)
[2024-12-08] MEDS: PANTOPRAZOLE 40 MG TABLET PO SCH (09:10)
[2024-12-08] MEDS: THIAMINE 100 MG TABLET PO SCH (09:11)
[2024-12-08] MEDS: POLYETHYLENE GLYCOL (HEALTHYLAX) 3350 17 GM PACKET PO SCH ×2 (09:12→21:15)
[2024-12-08] MEDS ORDERED: ENOXAPARIN NA (PORCINE) 40 MG/0.4 ML DISP.SYRIN SQ SCH (10:00)
[2024-12-08 10:14] LABS: CO2 30.0 mmol/L (21-32); GLUCOSE,RANDOM 95.0 mg/dL (74-106)
[2024-12-08 10:15] LABS: SGPT/ALT 28.0 U/L (13-61)
[2024-12-08 10:16] LABS: TOT PROT 5.8 g/dl (6.4-8.2)
[2024-12-08 10:18] LABS: ALK PHOS 90.0 U/L (45-117)
[2024-12-08 10:19] LABS: CREATININE 0.6 mg/dL (0.55-1.3); SGOT/AST 45.0 U/L (15-37)
[2024-12-08 10:30] LABS: CO2 28.0 mmol/L (21-32)
[2024-12-08 10:31] LABS: GLUCOSE,RANDOM 97.0 mg/dL (74-106)
[2024-12-08 10:34] LABS: CREATININE 0.6 mg/dL (0.55-1.3)
[2024-12-08] MEDS: BISACODYL 5 MG TABLET.DR (FP) PO PRN (13:18)
[2024-12-08] MEDS: MAGNESIUM HYDROX 2400MG/30ML ORAL SUSPENSION 30 ML CUP PO ONE (15:29)
[2024-12-08] MEDS: ROSUVASTATIN CA 5 MG TABLET PO SCH (21:14)
[2024-12-08] MEDS: ACETAMINOPHEN 500 MG TABLET (FP) PO SCH (21:15)
[2024-12-08 21:23] VITALS: RESP 18
[2024-12-09 07:56] LABS: MCHC 33.0 g/dl (32.2-35.5); MEAN CELL VOLUME 99.7 fl (79.4-94.8); MEAN PLT VOLUME 12.7 fl (9.4-12.3); RDW 14.0 % (12.3-16.6)
[2024-12-09 08:19] LABS: CO2 27.0 mmol/L (21-32); CREATININE 0.5 mg/dL (0.55-1.3); GLUCOSE,RANDOM 88.0 mg/dL (74-106)
[2024-12-09 08:20] LABS: SGPT/ALT 28.0 U/L (13-61)
[2024-12-09 08:21] LABS: TOT PROT 5.5 g/dl (6.4-8.2)
[2024-12-09 08:23] LABS: ALK PHOS 83.0 U/L (45-117)
[2024-12-09 08:27] LABS: SGOT/AST 38.0 U/L (15-37)
[2024-12-09 09:49] VITALS: BP 119/68; PULSE 61; TEMP 98.6
== END 2024-12-09 11:57 | disposition home or self-care (01) | DRG 418 ==
LOC: JER 08:40 → JERBED 11:46 → J6S 14:19
PROVIDERS: ADMIT Internal Medicine; ATTEND Internal Medicine
PROC: 0FT44ZZ Resection of Gallbladder, Percutaneous Endoscopic Approach (ICD-10-PCS; principal; 2024-12-07 18:15)
DX: K85.10 Biliary acute pancreatitis without necrosis or infection (principal); E87.1 Hypo-osmolality and hyponatremia; K85.20 Alcohol induced acute pancreatitis without necrosis or infection; I10 Essential (primary) hypertension; E78.5 Hyperlipidemia, unspecified; K80.20 Calculus of gallbladder without cholecystitis without obstruction; K83.8 Other specified diseases of biliary tract; K76.0 Fatty (change of) liver, not elsewhere classified; E87.6 Hypokalemia; E83.42 Hypomagnesemia; E16.2 Hypoglycemia, unspecified; F17.210 Nicotine dependence, cigarettes, uncomplicated; D69.6 Thrombocytopenia, unspecified
CPT/HCPCS: 0241U-QW; 36415; 71046-TC-FY; 74183-TC; 76705-TC; 80048; 80053; 80061; 80076; 81003; 82150; 82784; 82787; 82962; 83690; 83735; 83883; 84100; 85025; 85027; 86803; 86850; 86900; 86901; 87086; 87389; 88304-TC; 94760; 99285-25